=== PATIENT | female | born 1995 | race Caucasian/White ===

== ENCOUNTER 2022-08-29 08:18 | Outpatient (CLI) | payer OTHER, SELFPAY ==
--- NOTE | 2022-08-29 08:15 | CRLHL7_ITS ---
For Patients: As a result of the Century Cures Act, medical imaging exams and procedure reports are released immediately into your electronic medical record. You may view this report before your referring provider. If you have questions, please contact your health care provider. INDICATION: First trimester scan, establish dates. COMPARISON: None. TECHNIQUE: Real-time leone-scale imaging of the pelvis was performed. FINDINGS: Sonographic imaging demonstrates a single living intrauterine gestation. The embryo demonstrates a regular cardiac rate measuring 155 beats per minute. The embryo`s crown-rump length measurement of 1.2 cm corresponds to a gestational age of 7 weeks 2 days with a sonographic due date of April 15, 2023. There is a normal-appearing yolk sac measuring 2.4 mm. There are no gross abnormalities noted within the embryo at this early state of development. The placenta has not yet developed. The gestational sac has a normal appearance and there is no evidence of a perigestational hemorrhage. The amount of fluid within the sac appears appropriate for gestational age. The cervix is closed. The myometrium appears normal. The ovaries are of normal size. The right ovary measures 3.7 x 2.7 x 2.1 cm. Small corpus luteum cyst of on the right. The left ovary measures 2.7 x 1.8 x 1.3 cm. There are no suspicious fluid collections noted in the cul-de-sac. Trace free fluid in the right adnexa should be physiologic. IMPRESSION: Normal first trimester OB ultrasound exam. Gestational age calculated at 7 weeks 2 days with a sonographic due date of April 15, 2023. Dictated by Chase Ann MD @ 08/29/2022 9:25:02 AM (Electronically Signed)
== END 2022-08-29 08:19 | disposition home or self-care (01) ==
LOC: US 08:21
PROVIDERS: PCP Family Medicine; Visit Provider Physician Assistant
DX: Z34.91 Encounter for supervision of normal pregnancy, unspecified, first trimester (principal); Z3A.08 8 weeks gestation of pregnancy
CPT/HCPCS: 76817; 86592; 86703; 86762; 86787; 86803; 86850; 86900; 86901; 87086; 87340; 87491; 87591

== ENCOUNTER 2022-11-26 08:09 | Outpatient (CLI) | payer OTHER, SELFPAY ==
--- NOTE | 2022-11-26 08:15 | CRLHL7_ITS ---
For Patients: As a result of the Century Cures Act, medical imaging exams and procedure reports are released immediately into your electronic medical record. You may view this report before your referring provider. If you have questions, please contact your health care provider. INDICATION: Evaluate anatomy. COMPARISON: None. TECHNIQUE: Real time leone scale imaging of the fetus was performed. FINDINGS: Sonographic imaging demonstrates a single living intrauterine gestation. Fetus demonstrates a regular cardiac rate of 148 beats per minute. Fetus has a vertex orientation and longitudinal lie. The placenta lies anteriorly without evidence of placenta previa. Amniotic fluid volume appears normal. Single deepest vertical pocket: 5.0 cm. The cervix is closed and measures 4.0 cm in length. The composite ultrasound gestational age is calculated at 20 weeks 6 days with an estimated sonographic due date of April 09, 2023. The estimated weight is 370 grams which lies at the 76th percentile. The following biometric measurements were obtained: Biparietal diameter: 4.8 cm/20 weeks 4 days 70% Head circumference: 18.2 cm/20 weeks 4 days 62% Abdominal circumference: 16.4 cm/21 weeks 3 days 83% Femur length: 3.2 cm/19 weeks 6 days 31% The HC/AC ratio measures: 1.1 range (1.06-1.25) On anatomic survey, there is a normal appearance of the cerebral ventricles, cisterna magna and cerebellum. The nose, lips, and facial profile appear normal. The cervical, thoracic and lumbar spine are well visualized and appear normal. There is a normal four-chamber heart view and the left and right ventricular outflow tracts appear normal. diaphragm, stomach, kidneys and bladder appear normal. There is a normal three-vessel cord and cord insertion site. The four extremities appear normal. IMPRESSION: Normal OB ultrasound exam with concordance of clinical and sonographic dating. No intrinsic abnormalities noted on anatomic survey. Dictated by Chase Ann MD @ 11/26/2022 11:21:33 AM (Electronically Signed)
== END 2022-11-26 08:10 | disposition home or self-care (01) ==
LOC: US 08:10
PROVIDERS: PCP Family Medicine; Visit Provider Obstetrics & Gynecology
DX: Z34.92 Encounter for supervision of normal pregnancy, unspecified, second trimester (principal); Z3A.20 20 weeks gestation of pregnancy
CPT/HCPCS: 76805

== ENCOUNTER 2023-01-30 07:34 | Outpatient (CLI) | payer OTHER, SELFPAY | END 2023-01-30 07:35 | disposition home or self-care (01) | PROVIDERS: PCP Family Medicine; Visit Provider Physician Assistant | DX: Z34.93 Encounter for supervision of normal pregnancy, unspecified, third trimester (principal); Z3A.29 29 weeks gestation of pregnancy | CPT/HCPCS: 86592 ==

== ENCOUNTER 2023-03-19 10:34 | Outpatient (CLI) | payer OTHER, SELFPAY ==
--- NOTE | 2023-03-19 11:30 | CRLHL7_ITS ---
For Patients: As a result of the Century Cures Act, medical imaging exams and procedure reports are released immediately into your electronic medical record. You may view this report before your referring provider. If you have questions, please contact your health care provider. INDICATION: Third trimester scan, evaluate growth. Small for dates. COMPARISON: 11/26/2022 TECHNIQUE: Real time leone scale imaging of the fetus was performed. FINDINGS: Sonographic imaging demonstrates a single living intrauterine gestation. Fetus demonstrates a regular cardiac rate of 144 beats per minute. Fetus has a vertex position. The placenta lies anteriorly. Amniotic fluid volume appears normal and there is a single deepest vertical pocket: 6.4 cm. The estimated weight is 3117gm which lies at the 78th %. On the prior OB ultrasound exam dated 11/26/2022 the estimated weight was at the 76th%. BPD 87th percentile. HC 95th percentile. AC 80th percentile. FL 48th percentile. The HC/AC ratio measures 1.05 range (0.91-1.05). IMPRESSION: Sonographic gestational age 37 weeks 4 days and sonographic due date 04/05/2023. Sonographic age 10 days ahead of the clinical age. Estimated weight 78th percentile. Abdominal circumference 80th percentile. Dictated by Lucian Hewitt MD @ 03/19/2023 11:47:28 AM (Electronically Signed)
== END 2023-03-19 10:35 | disposition home or self-care (01) ==
LOC: US 10:35
PROVIDERS: PCP Family Medicine; Visit Provider Obstetrics & Gynecology
DX: O36.5930 Maternal care for other known or suspected poor fetal growth, third trimester, not applicable or unspecified (principal); Z3A.37 37 weeks gestation of pregnancy
CPT/HCPCS: 76816; 87081; 87653

== ENCOUNTER 2023-03-29 11:45 | Outpatient (CLI) | payer OTHER, SELFPAY ==
[2023-03-29 11:57] VITALS: BP 124/75; PULSE 94
[2023-03-29 12:09] VITALS: RESP 16; TEMP 37.1
[2023-03-29 12:27] LABS: Amnisure Rom* Negative
--- NOTE | 2023-03-29 14:29 | PC.OBNST ---
NST Note NST Note Start: 03/29/23 12:56 Freq: ONCE Status: Active Protocol: Document 03/29/23 12:40 [facility] (Rec: 03/29/23 14:29 [facility] [id number]) NST Note 1 Para (# of births) 0 EDC 04/14/23 Gestational Age In Weeks & Days 37 Weeks & 5 Days Patient Presented with Complaint(s) of Leaking fluid Reactive Yes Appropriate for Gestational Age Yes CARROL Montanez RN Date 03/29/23 Reactive Yes Appropriate for Gestational Age Yes CARROL Ritchie Date 03/29/23 OB NST charge Yes Complete NST Note via Write Note Yes The provider's electronic signature indicates the NST is reactive/appropriate for gestational age. *Note to provider: If an addendum is required, open the patient's chart and click on the note under the Nurse/Allied Health tab.
== END 2023-03-29 12:45 | disposition home or self-care (01) ==
LOC: OB OUT 11:45 → OB 11:46
PROVIDERS: PCP Family Medicine; Visit Provider Obstetrics & Gynecology
DX: O47.1 False labor at or after 37 completed weeks of gestation (principal); Z3A.37 37 weeks gestation of pregnancy
CPT/HCPCS: 59025; 84112; 99213

== ENCOUNTER 2023-04-14 15:10 | Inpatient (IN) | payer OTHER, SELFPAY ==
[2023-04-14] VITALS (32 sets, daily range): BP systolic 125–181; BP diastolic 70–109; PULSE 70–86; RESP 18–20; TEMP 36.3–36.5; O2SAT 99; BMI 26.4
[2023-04-14 15:54] LABS: Hematocrit 36.1 % (33.0-51.0); Hemoglobin* 11.9 gm/dL (12.0-16.0); Mean Corpuscular HGB Conc 33 gm/dL (32-36); Mean Corpuscular Hemoglobin 28 pg (26-34); Mean Corpuscular Volume 84 fL (80-100); Platelet Count* 280 K/uL (140-440); Red Blood Count 4.29 m/uL (4.00-5.20); White Blood Count* 9.79 K/uL (4.50-11.00)
[2023-04-14 15:59] LABS: Aspartate Amino Transferase* 33 U/L (12-35); Creatinine* 0.6 mg/dL (0.5-1.5); Est. Creatinine Clearance* 139.38; Estimated Glomerular Filt Rate 128 ml/min; Slide Review Reflex No
[2023-04-14 16:00] LABS: Alanine Aminotransferase* 26 U/L (4-35); Blood Urea Nitrogen* 9 mg/dL (5-24)
[2023-04-14] MEDS: LACTATED RINGERS 1000 ML 1,000 ML 124 ML IV (16:05)
[2023-04-14] MEDS: OXYTOCIN 30 unit/500 ML in NS 30 UNIT/500 ML BAG IVPB (16:05)
[2023-04-14 17:54] LABS: Creatinine Urine 107.2 mg/dL
[2023-04-14 19:47] LABS: Total Protein Urine 1810 mg/dL
--- NOTE | 2023-04-14 20:56 | W.PM.LDBA ---
Subjective History of Present Illness Time Seen by Provider: 12:00 Narrative: Patient is being admitted to Labor and Delivery for early labor. She is a 27 year old at 40.0 weeks gestation. Her full history and physical was dictated by Carin Marrero on 03/26/2023. Please see this for details. She initially presented with contractions and monitored for labor for approximately 6 hours with no change in cervical dilation (2 cm). She was contemplating going home to labor for the latent phase. However, she was noted to have mild ranging BP. I advised her to stay for induction/augmentation as she's not having persistently elevated BP. Patient agreed with IOL given that medical indication is present. Specific Issues/Plans 1. History of depression Has done well on fluoxetine in the past 2. Lifelong hereditary tremor 3. History of SVT. Status post cardiac ablation 2019 4. Nausea and vomiting in the a.m. Vitamin B6 and Unisom, suboptimal relief Phenergan prescription sent 10/02/22 Flu shot: 08/29/22 COVID: VACCINATED AND BOOSTED OB - Problem Based A/P Additional Plan (1) Gestational hypertension: Status: Acute Plan - Wallace: 7. Augmentation of labor with Pitocin - Will draw PreE labs OB Exam Physical Exam Vital signs: Temp Pulse Resp BP Pulse Ox 97.4 F L 75 20 148/98 H 99 04/14/23 19:52 04/14/23 20:39 04/14/23 19:52 04/14/23 20:39 04/14/23 10:30 Narrative: Physical exam: General: No acute distress Psych: Alert and oriented x3, full affect. Uncomfortable during contraction HEENT: Normocephalic, atraumatic Lungs: Labored breathing during contraction Neuro: No focal deficit. Mentating appropriately Pelvic exam: 2, soft, posterior
[2023-04-14] MEDS: fentaNYL 100 MCG/2 ML inj IVP (21:12)
[2023-04-14] MEDS: LABETALOL HCL 5 MG/ML inj IVP ×2 (21:48→22:12)
[2023-04-14] MEDS: MAGNESIUM IV 4 GM/100 ML PIGGYBACK IVPB (22:02)
[2023-04-14 22:17] LABS: Hematocrit 33.8 % (33.0-51.0); Hemoglobin* 11.2 gm/dL (12.0-16.0); Mean Corpuscular HGB Conc 33 gm/dL (32-36); Mean Corpuscular Hemoglobin 28 pg (26-34); Mean Corpuscular Volume 84 fL (80-100); Platelet Count* 273 K/uL (140-440); Red Blood Count 4.03 m/uL (4.00-5.20); White Blood Count* 10.57 K/uL (4.50-11.00)
[2023-04-14 22:22] LABS: Slide Review Reflex No
[2023-04-14 22:32] LABS: Alanine Aminotransferase* 23 U/L (4-35); Aspartate Amino Transferase* 29 U/L (12-35); Blood Urea Nitrogen* 10 mg/dL (5-24); Creatinine* 0.5 mg/dL (0.5-1.5); Est. Creatinine Clearance* 167.26; Estimated Glomerular Filt Rate 133 ml/min
[2023-04-15] VITALS (75 sets, daily range): BP systolic 107–178; BP diastolic 64–106; PULSE 68–156; RESP 14–18; TEMP 36.3–36.9; O2SAT 82–100
[2023-04-15] MEDS: LACTATED RINGERS 1000 ML 1,000 ML 75 ML IV ×3 (01:45→23:20)
[2023-04-15] MEDS: fentaNYL 100 MCG/2 ML inj IVP (04:01)
[2023-04-15 06:43] LABS: Hematocrit 34.1 % (33.0-51.0); Hemoglobin* 11.3 gm/dL (12.0-16.0); Mean Corpuscular HGB Conc 33 gm/dL (32-36); Mean Corpuscular Hemoglobin 28 pg (26-34); Mean Corpuscular Volume 83 fL (80-100); Platelet Count* 289 K/uL (140-440); Red Blood Count 4.09 m/uL (4.00-5.20); White Blood Count* 11.82 K/uL (4.50-11.00)
[2023-04-15 06:45] LABS: Slide Review Reflex No
[2023-04-15 07:10] LABS: Creatinine* 0.5 mg/dL (0.5-1.5); Est. Creatinine Clearance* 167.26; Estimated Glomerular Filt Rate 133 ml/min
[2023-04-15 07:11] LABS: Alanine Aminotransferase* 24 U/L (4-35); Aspartate Amino Transferase* 37 U/L (12-35); Blood Urea Nitrogen* 6 mg/dL (5-24)
[2023-04-15 07:17] LABS: Magnesium* 5.1 mg/dL (1.5-2.6)
[2023-04-15] MEDS: ONDANSETRON 2 MG/ML inj 4 MG IV (08:14)
[2023-04-15] MEDS: ROPIVACAINE 0.2% 100 ml 100 ML 12 MG EPIDURAL ×2 (10:24→17:05)
[2023-04-15] MEDS: ROPIVACAINE 0.2 % PF 10 ML INJ 20 MG EPIDURAL (10:24)
--- NOTE | 2023-04-15 10:50 | P.OBPN_ITS ---
Subjective Date Seen: 04/15/23 Narrative: Margaret is on pitocin and is sami regularly. She is breathing through contractions but coping well. Does plan on getting an epidural but doesn't feel that she needs on at this time. She is on magnesium and her blood pressures are mostly 130-140/80-90's. She hasn't needed treatment since yesterday evening. Dr. Clark and I did discuss this patient. She will continue to manage blood pressures while I manage labor since I am first call today. Will continue with pitcoin titration and consider AROM at noon if appropriate. Objective Vital Signs: Last Vital Signs Temp 97.4 F L 04/15/23 10:32 Pulse 90 04/15/23 10:44 Resp 16 04/15/23 10:32 BP 119/67 04/15/23 10:44 Pulse Ox 92 04/15/23 10:32 Contractions Monitor mode: External Contraction Frequency: 2-5 min Contraction pattern: Irregular Contraction intensity: Strong/Firm Assessment Assessment: induction ongoing Status: Category l Heart Rate Baseline: 120 Longterm Variability: Moderate (6-25) (periods of minimal variability ) Monitor Accelerations: Present Monitor Decelerations: None Plan Plan: Continue with Pitocin titration per protocol. Consider AROM when able. Candidate for epidural analgesia. Able to get when she desires. Blood pressure and magnesium managed by Dr. Clark.
[2023-04-15 11:09] LABS: Hematocrit 35.4 % (33.0-51.0); Hemoglobin* 11.6 gm/dL (12.0-16.0); Mean Corpuscular HGB Conc 33 gm/dL (32-36); Mean Corpuscular Hemoglobin 28 pg (26-34); Mean Corpuscular Volume 84 fL (80-100); Platelet Count* 290 K/uL (140-440); Red Blood Count 4.22 m/uL (4.00-5.20); White Blood Count* 10.56 K/uL (4.50-11.00)
[2023-04-15 11:14] LABS: Slide Review Reflex No
--- NOTE | 2023-04-15 11:25 | PM.ANBPRC ---
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 Exercise 3 times a week 25 minutes Nonsmoker Does not drink alcohol or use drugs What is your current living situation?: I presently have a place to live Problems where you live: no known problems In the past 12 months, utilities in danger of being shut off: no In the past 12 mos, have been you worried that your food would run out before you had money to buy more?: never true In the past 12 mos, the food you bought just didn't last and you didn't have money to buy more?: never true Smoking Status: Never smoker How often does anyone, including family, friends and others, physically hurt you: never How often does anyone, including family, friends and others, insult or talk down to you: never How often does anyone, including family, friends and others, threaten you with harm: never How often does anyone, including family, friends and others, scream or curse at you: never Little interest or pleasure in doing things: several days Feeling down, depressed, or hopeless: several days Meds Home Medications and Allergies Home Medications Medication Instructions Recorded Confirmed Type docosahexaenoic acid 200 mg mg PO DAILY 08/29/22 04/08/23 History capsule ( DHA) pediatric multivitamin no.19-folic tab PO 08/29/22 04/08/23 History acid 200 mcg chewable tablet (Children's Multi-Vitamin Gummies) Allergies Allergy/AdvReac Type Severity Reaction Status Date / Time No Known Drug Allergies Allergy Verified 04/08/23 10:47 Results Labs Labs: Laboratory Results - last 24 hr 04/14/23 04/14/23 04/14/23 15:35 16:35 22:03 WBC 9.79 10.57 RBC 4.29 4.03 Hgb 11.9 L 11.2 L Hct 36.1 33.8 MCV 84 84 MCH 28 28 MCHC 33 33 Plt Count 280 273 BUN 9 10 Creatinine 0.6 0.5 Estimated Creat Clear 139.38 167.26 Estimated GFR 128 133 Magnesium AST 33 29 ALT 26 23 Urine Creatinine 107.2 Protein/Creatinin Ratio 16.80 H Urine Total Protein 1810 04/15/23 04/15/23 06:24 11:02 WBC 11.82 H 10.56 RBC 4.09 4.22 Hgb 11.3 L 11.6 L Hct 34.1 35.4 MCV 83 84 MCH 28 28 MCHC 33 33 Plt Count 289 290 BUN 6 Creatinine 0.5 Estimated Creat Clear 167.26 Estimated GFR 133 Magnesium 5.1 H* AST 37 H ALT 24 Urine Creatinine Protein/Creatinin Ratio Urine Total Protein Vital Signs Vital Signs: Last Vital Signs Temp 97.4 F L 04/15/23 10:32 Pulse 95 04/15/23 11:17 Resp 16 04/15/23 10:32 BP 122/71 04/15/23 11:17 Pulse Ox 92 04/15/23 10:32 Weight: 76.657 kg Height: 170.18 cm Anesthesia Procedures Epidural Insertion Patient Location: OB Start Time: 10:05 Stop Time: 10:50 Start Date: 04/15/23 Stop Date: 04/15/23 Reason for Block: primary anesthetic Patient Position: sitting Performed By: Chris Esqueda Preanesthetic Checklist: IV checked, risks and benefits discussed, surgical consent, monitors and equipment checked, pre-op evaluation, timeout performed and anesthesia consent Prep: chlorhexidine gluconate Monitoring: blood 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
[2023-04-15 11:29] LABS: Alanine Aminotransferase* 26 U/L (4-35); Aspartate Amino Transferase* 36 U/L (12-35); Blood Urea Nitrogen* 6 mg/dL (5-24); Creatinine* 0.6 mg/dL (0.5-1.5); Est. Creatinine Clearance* 139.38; Estimated Glomerular Filt Rate 128 ml/min
[2023-04-15 11:34] LABS: Magnesium* 5.6 mg/dL (1.5-2.6)
--- NOTE | 2023-04-15 13:31 | P.OBPN_ITS ---
Subjective Time Seen by Provider: 11:45 Date Seen: 04/15/23 Narrative: I visited Margaret late this morning, shortly after her epidural. She was feeling more comfortable. At the time of my visit, she had just had cervical exam by RN, findings as below. Objective Exam: Gen - trembling consistent with active labor Cervical exam per RN: / +1 Vital Signs: Last Vital Signs Temp 98.5 F 04/15/23 12:38 Pulse 87 04/15/23 13:18 Resp 16 04/15/23 12:38 BP 126/77 04/15/23 13:18 Pulse Ox 92 04/15/23 10:32 Comments: tracing: Category I, contractions inconsistent and infrequent Pitocin at 8 mU / min Labs from 11:00 a.m.: Hemoglobin 11.6, hematocrit 35.4, platelets 290 Creatinine 0.6 AST 36, down from 37 ALT 26 Magnesium level 5.6 Contractions Monitor mode: External Contraction pattern: Irregular Contraction intensity: Strong/Firm Assessment Status: Category l Heart Rate Baseline: 120 Monitor Accelerations: Present Monitor Decelerations: None Tracing Comments: Category 1 as above Labor Progress: On the verge of active labor given her cervical exam. Currently on Pitocin with intact bag of water. Maternal Status: Preeclampsia with severe features based on blood pressure criteria. Magnesium sulfate for seizure prophylaxis was started overnight. She has been nor motensive in recent history. Labs are all stable. Plan Plan: Continue magnesium for seizure prophylaxis. Continue Pitocin augmentation. I discussed plan with Renetta Valverde and recommended AROM at her next exam. Continuous monitoring. Anticipate .
[2023-04-15 16:19] LABS: Hematocrit 37.2 % (33.0-51.0); Hemoglobin* 12.4 gm/dL (12.0-16.0); Mean Corpuscular HGB Conc 33 gm/dL (32-36); Mean Corpuscular Hemoglobin 28 pg (26-34); Mean Corpuscular Volume 83 fL (80-100); Platelet Count* 309 K/uL (140-440); Red Blood Count 4.46 m/uL (4.00-5.20); White Blood Count* 12.66 K/uL (4.50-11.00)
[2023-04-15 16:22] LABS: Slide Review Reflex No
[2023-04-15 16:36] LABS: Alanine Aminotransferase* 26 U/L (4-35); Aspartate Amino Transferase* 38 U/L (12-35); Blood Urea Nitrogen* 6 mg/dL (5-24); Creatinine* 0.6 mg/dL (0.5-1.5); Est. Creatinine Clearance* 139.38; Estimated Glomerular Filt Rate 128 ml/min
--- NOTE | 2023-04-15 19:33 | PM.OBPNL ---
Subjective Date Seen: 04/15/23 Narrative: Margaret has been continuing to labor and is progressing well. She received an epidural late this morning which is working well for her. She doesn't feel contractions but has continued to feel pressure throughout. Around noon she was offered AROM and was agreeable. She was ruptured with lightly stained meconium fluid. She was 6-7cm at that time. She continued to progress to complete and began pushing a little before 1700. She has continued to push, changing positions frequently. She did take 30-45 minutes of pushing to figure out how to push effectively but now seems to be pushing well. Will continue to change positions to optimize positioning and ability to push. Amniotic fluid is now moderately stained and the pediatric provider is aware. Her blood pressures and temperature have remained in the normal range. Objective Vital Signs: Last Vital Signs Temp 97.7 F 04/15/23 19:19 Pulse 85 04/15/23 19:17 Resp 18 04/15/23 19:19 BP 149/89 H 04/15/23 19:17 Pulse Ox 92 04/15/23 10:32 Contractions Monitor mode: External Contraction pattern: Irregular Contraction intensity: Strong/Firm Assessment Status: Category l Heart Rate Baseline: 120 Monitor Accelerations: Present Monitor Decelerations: None Plan Plan: Continue to push with contractions. Will evaluate progression and change positions as needed. Monitor blood pressures per protocol.
[2023-04-15] MEDS: LABETALOL HCL 5 MG/ML inj IVP (21:15)
--- NOTE | 2023-04-15 21:33 | PM.OBPNL ---
Subjective Time Seen by Provider: 21:15 Date Seen: 04/15/23 Narrative: Margaret has been pushing for just over 4 hours at this point. She is feeling quite tired. No definite progress in the last 30 minutes. Objective Exam: Abdomen: Soft, EFW 7.5 lbs with back to maternal right Vaginal exam: caput to +1, but vertex at 0 station. Suspect OP. Patient intolerant at attempt to perform manual rotation. Vital Signs: Last Vital Signs Temp 97.4 F L 04/15/23 21:00 Pulse 86 04/15/23 21:31 Resp 18 04/15/23 21:00 BP 155/101 H 04/15/23 21:31 Pulse Ox 92 04/15/23 10:32 Margaret has just received a dose of IV labetalol for blood pressure greater than 160 systolic Comments: tracing: Baseline 120, accelerations present, no decelerations, moderate variability Labs at 4:10 p.m.: Hemoglobin 12.4, platelets 309 Creatinine 0.6 AST 38, up from 36 previously ALT 26 Contractions Monitor mode: External Contraction pattern: Irregular Contraction intensity: Strong/Firm Assessment Status: Category l Heart Rate Baseline: 120 Retirement Variability: Moderate (6-25) Monitor Accelerations: Present Monitor Decelerations: None Tracing Comments: Category 1 tracing Labor Progress: Arrest of descent Maternal Status: Severe preeclampsia by blood pressure criteria. Margaret just required a dose of IV labetalol for severely elevated blood pressure. She is maintained on magnesium sulfate. HELLP labs are stable. Plan Plan: Primary delivery. Pitocin was stopped. After 10 minutes, with continuation of painful contractions, she was given a dose of terbutaline. We discussed risks of , including bleeding/hemorrhage, infection, damage to internal organs, uterine scarring and effect on future pregnancies, thromboembolism, and likely recovery. Consent form reviewed with and signed by patient. Cefazolin and azithromycin for preoperative antibiotics. I will plan for misoprostol for anticipated uterine atony.
[2023-04-15] MEDS: TERBUTALINE 1 MG/ML INJ 0.25 MG SUBCUT (21:34)
[2023-04-15 21:48] LABS: Hematocrit 35.4 % (33.0-51.0); Mean Corpuscular HGB Conc 34 gm/dL (32-36); Mean Corpuscular Hemoglobin 28 pg (26-34); Mean Corpuscular Volume 82 fL (80-100); Platelet Count* 293 K/uL (140-440); Red Blood Count 4.34 m/uL (4.00-5.20); White Blood Count* 15.08 K/uL (4.50-11.00)
[2023-04-15 21:52] LABS: Slide Review Reflex No
--- NOTE | 2023-04-15 21:58 | P.OBPN_ITS ---
Subjective Date Seen: 04/15/23 Narrative: Around 2029 the patient had been pushing about 3.5 hours. There had been some good progress in descent but the descent had stalled and there was a significant increase in caput noted. She was starting to loose energy and strength. There was also more space posteriorly as opposed to anteriorly so it was suspected that baby was in an OP presentation. Dr. Clark was called in to come evaluate around 2034. On her arrival it was clear that there had been no change in station and a significant increase in maternal exhaustion. She also had an increase in blood pressures that required treatment. See Dr. Clark's note for additional details. Objective Vital Signs: Last Vital Signs Temp 97.4 F L 04/15/23 21:00 Pulse 86 04/15/23 21:57 Resp 18 04/15/23 21:00 BP 115/81 04/15/23 21:57 Pulse Ox 92 04/15/23 10:32 Contractions Monitor mode: External Contraction pattern: Irregular Contraction intensity: Strong/Firm Pitocin Rate (mU/min): 10 (turned off after decision to proceed with .) Assessment Status: Category l Heart Rate Baseline: 120 Shelter Variability: Moderate (6-25) Monitor Accelerations: Present Monitor Decelerations: None
[2023-04-15 22:05] LABS: Alanine Aminotransferase* 25 U/L (4-35); Aspartate Amino Transferase* 39 U/L (12-35); Blood Urea Nitrogen* 7 mg/dL (5-24); Creatinine* 0.6 mg/dL (0.5-1.5); Est. Creatinine Clearance* 139.38; Estimated Glomerular Filt Rate 128 ml/min
[2023-04-15 22:08] LABS: Magnesium* 6.3 mg/dL (1.5-2.6)
[2023-04-15] MEDS: CEFAZOLIN 2 GM INJ IVP (22:22)
[2023-04-15] MEDS: AZITHROMYCIN 500 MG in 0.9 % SODIUM CHLORIDE 250 ml 250 ML 255 MG IVPB (22:25)
[2023-04-15] MEDS: miSOPROStoL 800 MCG/4 TABLET PR (23:30)
--- NOTE | 2023-04-15 23:56 | P.OBPRC_ITS ---
Procedure Date of procedure: 04/15/23 Pre-op diagnosis: Arrest of descent Post-op diagnosis: same Procedure Done: Global Will [facility] bill your pro fee for this procedure?: Yes Blood Loss Measurement Type: QBL (490) Bakri Used: No IV fluids (mL): 1,400 Surgeon: Dr. Anupama Clark MD Anesthesia type: Epidural Findings: 1. Male infant, cephalic OP presentation, Apgars 1, 4, 7 and 8. Weight 8 lbs 1 oz 2. Bloody urine noted at placement of catheter before . Bladder drained poorly throughout . 3. Normal appearance of uterus, bilateral tubes and ovaries Procedure Description: Patient was taken to the operating room with IV running. She received cefazolin and azithromycin in preoperative prophylaxis. Epidural anesthesia had previously been administered and was dosed to adequacy. Vaginal prep was performed. pillow was placed in the posterior vagina. Sal catheter was inserted. Legs were placed in neutral position. The pillow was inflated with 180 mL. She was prepped and draped in the usual sterile fashion. Anesthesia was tested and found to be adequate. A low-transverse skin incision was made with a scalpel and carried through to the underlying layer of fascia with the scalpel. The subcutaneous fat was dissected off the underlying fascia bluntly. The fascia was nicked in the midline with a scalpel, and this incision was extended laterally with scissors. The rectus muscles were in the midline. Peritoneum was identified and entered bluntly. Scissors were used to widen this opening laterally. Hernan O retractor was inserted and tightened down, providing excellent visualization of the lower uterine segment. The bladder was markedly distended, which did not resolve after flushing the catheter tubing. A bladder flap was created with a combination of sharp and blunt dissection. Low-transverse uterine incision was made with a scalpel. Incision was widened bluntly. The 's head was grasped through the hysterotomy and delivered w ith the help of fundal pressure. The remainder of the body delivered without incident. Cord was clamped and cut shortly after when poor tone was noted. Meconium stained fluid was noted. was handed off to attending nurses. The placenta was delivered with gentle traction on the cord. The uterus was cleaned of all clots and debris with the dry lap pad. The uterus was exteriorized. There was an abundantly bleeding vessel at the left aspect of the incision which was immediately addressed with [id number] sutures. The hysterotomy was reapproximated with 0 Vicryl in a running, locked fashion. Second layer of the same suture was used in imbricating fashion to obtain hemostasis along the leftward aspect. The adnexa were examined and noted to be normal in appearance. The cul-de-sac and gutters were cleansed with dampened laparotomy sponge, removing any further clots and debris. The uterus was returned to the abdomen. The Hernan O retractor was removed. The hysterotomy was reexamined and found to be hemostatic. The peritoneum was reapproximated with 2 0 Vicryl in a running fashion. The rectus muscles were examined and found to be hemostatic. The fascia was reapproximated with 0 Vicryl in a running fashion. Subcutaneous fat was irrigated and Bovie used on oozing vessels. The skin was closed with a subcuticular stitch of 4-0 Monocryl. Surgical glue was applied above this. Patient tolerated procedure well was taken to recovery area in stable condition. Complications: None Condition: stable
[2023-04-16] VITALS (42 sets, daily range): BP systolic 117–182; BP diastolic 72–130; PULSE 71–94; RESP 14–18; TEMP 36.3–36.9; O2SAT 95–100
--- NOTE | 2023-04-16 00:08 | P.ANES_ITS ---
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
--- NOTE | 2023-04-16 00:09 | P.NB_ITS ---
Nerve Block Nerve Block Time Seen by Provider: 23:45 Date Seen: 04/16/23 Type of block requested by surgeon for post-operative analgesia: TAP Side: bilateral Time out performed: Yes Verification of patient name: Yes Verification of date of : Yes Site marking: not applicable Name of person performing procedure: abbi Continuous monitoring Was continuous monitoring of O2 sat, B/P, property assessment monitor, recorded every 15 minutes?: Yes Procedure Checklist: sterile prep, needles and gloves Ultrasound guided. Images saved: Yes Medications given in 5ml increments after negative aspiration: Marcaine %: 0.25 mL: 30 Needle gauge: 20 and Exparel mL: 10 Patient tolerated procedure well: Yes Block Charges Block Charge (with Pro Fee): TAP Bilateral Use of Ultrasound Machine for Block: Yes- US Guidance/pain block
[2023-04-16 00:19] LABS: Base Excess Cord Venous Blood -9.7 mmol/L (-4.4-4.4); Cord Venous Blood HCO3 20 mmol/L (19-24); Cord Venous Blood PCO2 54 mmHG (33-49); Cord Venous Blood pH 7.17 (7.28-7.40)
[2023-04-16] MEDS: diphenhydrAMINE 50 MG/ML inj 12.5 MG IVP ×3 (05:36→10:22)
[2023-04-16] MEDS: KETOROLAC 30 MG/ML inj IVP ×4 (05:37→23:37)
[2023-04-16 05:43] LABS: Hematocrit 34.9 % (33.0-51.0); Hemoglobin* 11.9 gm/dL (12.0-16.0); Mean Corpuscular HGB Conc 34 gm/dL (32-36); Mean Corpuscular Hemoglobin 28 pg (26-34); Mean Corpuscular Volume 81 fL (80-100); Platelet Count* 289 K/uL (140-440); Red Blood Count 4.29 m/uL (4.00-5.20); White Blood Count* 17.32 K/uL (4.50-11.00)
[2023-04-16 05:46] LABS: Slide Review Reflex No
[2023-04-16 06:15] LABS: Aspartate Amino Transferase* 46 U/L (12-35); Creatinine* 0.6 mg/dL (0.5-1.5); Est. Creatinine Clearance* 139.38; Estimated Glomerular Filt Rate 128 ml/min
[2023-04-16 06:16] LABS: Alanine Aminotransferase* 24 U/L (4-35); Blood Urea Nitrogen* 6 mg/dL (5-24)
[2023-04-16 06:24] LABS: Magnesium* 6.1 mg/dL (1.5-2.6)
[2023-04-16] MEDS: LACTATED RINGERS 1000 ML 1,000 ML 125 ML IV (07:02)
[2023-04-16] MEDS: LACTATED RINGERS 1000 ML 1,000 ML 75 ML IV ×2 (07:10→18:16)
[2023-04-16] MEDS: LABETALOL HCL 100 MG TABLET 200 MG PO ×2 (08:45→20:47)
--- NOTE | 2023-04-16 09:11 | PM.OBPNVD1 ---
OB - PN:Subj Subjective Date Seen: 04/16/23 [place] status: transferred Narrative: Patient is okay, tired, a little confused by events last night. Patient is POD1 after delivery due to arrest of descent/dilation. Patient underwent IOL due to preeclampsia with severe features. Surgery uncomplicated, baby had to be transferred to [facility] due to low APGARs and is under cooling therapy. She is on Magnesium Sulfate now to complete 24 hours of seizure prophylaxis after delivery, this will be completed at around 12am on 04/17/23. 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 HELLP labs this morning stable. I/O normal. Blood pressures elevated, not persistently on severity range. She has not eaten, or get out of bed since surgery last night. Pain is currently well managed. OB - PN: Obj Exam Physical Exam: Vital signs: Temp Pulse Resp BP Pulse Ox O2 Del Method 98.2 F 89 16 138/91 H 100 Room Air 04/16/23 08:21 04/16/23 08:21 04/16/23 08:21 04/16/23 08:36 04/16/23 08:21 04/16/23 08:21 Narrative: VITAL SIGNS: As noted above. GENERAL APPEARANCE: Alert, cooperative female in no acute distress. MOOD & AFFECT: Normal. HEART: Regular rate and rhythm without murmurs. LUNGS: Lungs are clear to auscultation bilaterally. No crackles, wheezes, or rhonchi. ABDOMEN: Soft, non-distended and Appropriately tender, well contracted uterus. Incision covered by dressing this is dry. : Normal lochia. EXTREMITIES: Trace edema, SCDs on lower extremities, brisk patellar reflexes. Well perfused. Nontender. NEURO: Intact. Sal catheter: currently at least 100mL of clear urine. Urinary Catheter Management: Urethral: Cath placed during this visit: yes Urethral indwelling: Yes Reason for continuing: surgical procedure Insertion date: 04/15/23 OB - PN: Obj Data Labs Labs: Laboratory Results - last 24 hr 04/15/23 04/15/23 04/15/23 06:24 11:02 16:10 WBC 10.56 12.66 H RBC 4.22 4.46 Hgb 11.6 L 12.4 Hct 35.4 37.2 MCV 84 83 MCH 28 28 MCHC 33 33 Plt Count 290 309 Cord VBG pH Cord VBG pCO2 Cord VBG HCO3 Cord VBG Base Excess BUN 6 6 Creatinine 0.6 0.6 Estimated Creat Clear 139.38 139.38 Estimated GFR 128 128 Magnesium 5.6 H* Cancelled AST 36 H 38 H ALT 26 26 Blood Type O Positive Antibody Screen NEGATIVE 04/15/23 04/15/23 04/16/23 21:43 23:04 05:35 WBC 15.08 H 17.32 H RBC 4.34 4.29 Hgb 12.0 11.9 L Hct 35.4 34.9 MCV 82 81 MCH 28 28 MCHC 34 34 Plt Count 293 289 Cord VBG pH 7.17 L Cord VBG pCO2 54 H Cord VBG HCO3 20 Cord VBG Base Excess -9.7 L BUN 7 6 Creatinine 0.6 0.6 Estimated Creat Clear 139.38 139.38 Estimated GFR 128 128 Magnesium 6.3 H* 6.1 H* AST 39 H 46 H ALT 25 24 Blood Type Antibody Screen OB - PN: A/P Delivery Assessment and Plan (1) Gestational hypertension: Status: Acute Plan 1. Continue Magnesium Sulfate infusion, close monitoring of vital signs, I/Os. Will continue with HELLP labs every 6 hours, will add magnesium level with her next set of labs collected. 2. BP management: Will start labetalol 200mg PO BID. Will continue to titrate as needed. 3. Encouraged to pump as she is interested in , we can also help her with advertising sales consultant. 4. Continue routine pp cares. Plan day: 1 Plan: routine care
[2023-04-16 11:44] LABS: Hematocrit 30.5 % (33.0-51.0); Hemoglobin* 10.3 gm/dL (12.0-16.0); Mean Corpuscular HGB Conc 34 gm/dL (32-36); Mean Corpuscular Hemoglobin 28 pg (26-34); Mean Corpuscular Volume 82 fL (80-100); Platelet Count* 258 K/uL (140-440); Red Blood Count 3.72 m/uL (4.00-5.20); White Blood Count* 14.03 K/uL (4.50-11.00)
[2023-04-16 11:46] LABS: Slide Review Reflex No
[2023-04-16 12:03] LABS: Alanine Aminotransferase* 23 U/L (4-35); Aspartate Amino Transferase* 40 U/L (12-35); Blood Urea Nitrogen* 7 mg/dL (5-24); Creatinine* 0.7 mg/dL (0.5-1.5); Est. Creatinine Clearance* 119.47; Estimated Glomerular Filt Rate 123 ml/min
[2023-04-16 12:11] LABS: Magnesium* 6.2 mg/dL (1.5-2.6)
--- NOTE | 2023-04-16 12:20 | SUR.OPER ---
The pillow was placed at 22:[address] Clark. This commercial real estate underwriter instilled 180mL of sterile saline into the pillow per MD instructions.
--- NOTE | 2023-04-16 12:21 | SUR.OPER ---
This health technical writer deflated the pillow at 23:20 by draining the sterile saline into a graduate. The pillow was then removed from the patient's vagina and disposed of by this health technical writer.
[2023-04-16] MEDS: SIMETHICONE 80 MG TAB.CHEW PO (15:59)
[2023-04-16 18:19] LABS: Hematocrit 32.8 % (33.0-51.0); Hemoglobin* 11.1 gm/dL (12.0-16.0); Mean Corpuscular HGB Conc 34 gm/dL (32-36); Mean Corpuscular Hemoglobin 28 pg (26-34); Mean Corpuscular Volume 83 fL (80-100); Platelet Count* 303 K/uL (140-440); Red Blood Count 3.95 m/uL (4.00-5.20); White Blood Count* 14.92 K/uL (4.50-11.00)
[2023-04-16 18:22] LABS: Alanine Aminotransferase* 25 U/L (4-35); Aspartate Amino Transferase* 43 U/L (12-35); Blood Urea Nitrogen* 9 mg/dL (5-24); Creatinine* 0.7 mg/dL (0.5-1.5); Est. Creatinine Clearance* 119.47; Estimated Glomerular Filt Rate 123 ml/min; Slide Review Reflex No
[2023-04-16] MEDS: OXYCODONE 5 MG TABLET PO (20:46)
[2023-04-16] MEDS: ACETAMINOPHEN 500 MG TABLET 1000 MG PO (20:54)
[2023-04-16 23:56] LABS: Hematocrit 27.8 % (33.0-51.0); Hemoglobin* 9.3 gm/dL (12.0-16.0); Mean Corpuscular HGB Conc 34 gm/dL (32-36); Mean Corpuscular Hemoglobin 28 pg (26-34); Mean Corpuscular Volume 83 fL (80-100); Platelet Count* 234 K/uL (140-440); Red Blood Count 3.34 m/uL (4.00-5.20); White Blood Count* 12.42 K/uL (4.50-11.00)
[2023-04-16 23:59] LABS: Slide Review Reflex No
[2023-04-17] VITALS (9 sets, daily range): BP systolic 116–135; BP diastolic 66–90; PULSE 77–99; RESP 16–18; TEMP 36.4–37.2; O2SAT 94–99
[2023-04-17 00:12] LABS: Alanine Aminotransferase* 20 U/L (4-35); Aspartate Amino Transferase* 36 U/L (12-35); Blood Urea Nitrogen* 12 mg/dL (5-24); Creatinine* 0.7 mg/dL (0.5-1.5); Est. Creatinine Clearance* 119.47; Estimated Glomerular Filt Rate 123 ml/min
[2023-04-17 00:21] LABS: Magnesium* 5.3 mg/dL (1.5-2.6)
[2023-04-17] MEDS: OXYCODONE 5 MG TABLET PO (03:19)
[2023-04-17] MEDS: KETOROLAC 30 MG/ML inj IVP (05:30)
[2023-04-17] MEDS: SODIUM CHLORIDE 0.9 % (FLUSH) 10 ML SYRINGE IVF (05:31)
[2023-04-17 08:48] LABS: Hematocrit 28.9 % (33.0-51.0); Hemoglobin* 9.5 gm/dL (12.0-16.0); Mean Corpuscular HGB Conc 33 gm/dL (32-36); Mean Corpuscular Hemoglobin 28 pg (26-34); Mean Corpuscular Volume 84 fL (80-100); Platelet Count* 241 K/uL (140-440); Red Blood Count 3.44 m/uL (4.00-5.20)
[2023-04-17 08:52] LABS: Slide Review Reflex No
[2023-04-17 09:01] LABS: Alanine Aminotransferase* 22 U/L (4-35); Blood Urea Nitrogen* 11 mg/dL (5-24); Creatinine* 0.6 mg/dL (0.5-1.5); Est. Creatinine Clearance* 139.38; Estimated Glomerular Filt Rate 128 ml/min
--- NOTE | 2023-04-17 09:05 | P.OBPN_ITS ---
OB - PN:Subj Subjective Date Seen: 04/17/23 Patient comments OB post-: no complaints, pain well controlled, tolerating diet and flatus present [place] status: and doing well [place] feeding status: exclusively Narrative: Complications:? primary , baby transferred to NICU.? The patient feels well but exhausted.? The pain is well controlled with current medications.? She has no new complaints.? Urinary output is adequate and she is voiding without difficulty.? Has a good appetite, is tolerating a general diet, is passing flatus, and has not had a bowel movement.? Has scant amount of rubra lochia.? Dressing is clean dry and intact. She is now ambulating well but did not ambulated yesterday so she has not been up much at this point. She is hand expressing milk for her baby in the NICU and will start pumping today as well. We did discuss the possibility of discharge today if her labs today were normal, her blood pressures remain stable, she is able to ambulate without difficulty, pain is well controlled, and she is feeling well enough to discharge.?Blood pressures today have been 110-130/60-80's and denies associated symptoms. She is on 200mg Labetalol BID. Magnesium was stopped around 0000 this morning. Hgb 9.5 today and 9.3 yesterday. Will start on PO iron supplement. OB - PN: Obj Exam Physical Exam: Vital signs: Temp Pulse Resp BP Pulse Ox O2 Del Method 98.0 F 77 18 132/82 96 Room Air 04/17/23 08:00 04/17/23 08:00 04/17/23 08:00 04/17/23 08:00 04/17/23 08:00 04/17/23 08:00 Narrative: GENERAL APPEARANCE:? normal affect, alert, no distress? MOOD:? appropriate? CHEST:? clear to auscultation and percussion? HEART:? regular rate and rhythm? ABDOMEN:? soft, non-tender the uterine fundus is U/2 and is appropriate for the stage of recovery.?Incision dressing is clean dry and intact. EXTREMITIES:? normal and no edema? Urinary Catheter Management: Urethral: Cath placed during this visit: yes, but has since been removed by the nurse Urethral indwelling: Yes Reason for continuing: surgical procedure Insertion date: 04/15/23 Removal date: 04/16/23 Removal time: 22:10 OB - PN: Obj Data Labs Labs: Laboratory Results - last 24 hr 04/16/23 04/16/23 04/16/23 11:37 18:00 23:50 WBC 14.03 H 14.92 H 12.42 H RBC 3.72 L 3.95 L 3.34 L Hgb 10.3 L 11.1 L 9.3 L Hct 30.5 L 32.8 L 27.8 L MCV 82 83 83 MCH 28 28 28 MCHC 34 34 34 Plt Count 258 303 234 BUN 7 9 12 Creatinine 0.7 0.7 0.7 Estimated Creat Clear 119.47 119.47 119.47 Estimated GFR 123 123 123 Magnesium 6.2 H* 6.0 H* 5.3 H* AST 40 H 43 H 36 H ALT 23 25 20 04/17/23 08:38 WBC 10.80 RBC 3.44 L Hgb 9.5 L Hct 28.9 L MCV 84 MCH 28 MCHC 33 Plt Count 241 BUN 11 Creatinine 0.6 Estimated Creat Clear 139.38 Estimated GFR 128 Magnesium AST ALT 22 OB - PN: A/P Delivery Assessment and Plan (1) Gestational hypertension: Status: Acute (2) Lactating mother: Status: Acute (3) care following delivery: Status: Acute (4) Pre-eclampsia: Status: Acute (5) 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 [facility] records - Hereditary essential tremor. Status: Chronic (6) Iron deficiency anemia: Status: Acute Plan day: 2 Plan: routine care
[2023-04-17] MEDS: LABETALOL HCL 100 MG TABLET 200 MG PO ×2 (09:20→21:26)
[2023-04-17] MEDS: DOCUSATE SODIUM 100 MG CAPSULE PO (09:21)
[2023-04-17 09:30] LABS: Aspartate Amino Transferase* 39 U/L (12-35)
[2023-04-17] MEDS: ACETAMINOPHEN 500 MG TABLET 1000 MG PO (18:58)
[2023-04-17] MEDS: FERROUS SULFATE 325 MG TABLET PO (18:59)
[2023-04-18 04:02] VITALS: BP 149/98; PULSE 80; RESP 16; TEMP 36.6; O2SAT 98
--- NOTE | 2023-04-18 08:50 | P.OBPN_ITS ---
Documented by User: Lyle Mann CNM 04/18/23 09:36 OB - PN:Subj Subjective Date Seen: 04/18/23 Patient comments OB post-: pain well controlled status: and NICU [place] feeding status: expressed and storing Narrative: Margaret is a 27 y.o. who had a .?The patient feels well. ?The pain is well controlled with current medications. ?She has no new complaints. ?She is pumping as her baby has been transferred to NICU and reports things are going well.? the patient was on Magnesium sulfate for pre-eclampsia. ? She has been afebrile, she has had elevated BP this morning at 0400 149/98 and then arount 0830 147/87. Will adjust medication currently on 200mg Labetalol BID increase to 400mg BID per Dr. Whitaker. Will consider discharge later today if blood pressures regulate with medication change. She would like to go to see her baby.? She has remained afebrile.? Has a good appetite, is tolerating a general diet. ?She is voiding without difficulty.? She is passing gas and has had a bowel movement.? She is ambulating and denies any dizziness.? Has Small amount of rubra lochia. OB - PN: Obj Exam Physical Exam: Vital signs: Temp Pulse Resp BP Pulse Ox O2 Del Method 97.9 F 80 16 149/98 H 98 Room Air 04/18/23 04:02 04/18/23 04:02 04/18/23 04:02 04/18/23 04:02 04/18/23 04:02 04/18/23 04:02 Narrative: GENERAL APPEARANCE:? normal affect, alert, no distress? MOOD:? appropriate? CHEST:? clear to auscultation and percussion? HEART:? regular rate and rhythm? ABDOMEN:? soft, non-tender the uterine fundus is firm and u/2 and is appropriate for the stage of recovery.? INCISION: is clean, dry and intact with out drainage. ? EXTREMITIES:? normal and no edema? Urinary Catheter Management: Urethral: Cath placed during this visit: yes, but has since been removed by the nurse Urethral indwelling: Yes Reason for continuing: surgical procedure Insertion date: 04/15/23 Removal date: 04/16/23 Removal time: 22:10 OB - PN: Obj Data Labs Labs: Laboratory Results - last 24 hr 04/17/23 04/17/23 08:38 08:50 WBC 10.80 RBC 3.44 L Hgb 9.5 L Hct 28.9 L MCV 84 MCH 28 MCHC 33 Plt Count 241 BUN 11 Creatinine 0.6 Estimated Creat Clear 139.38 Estimated GFR 128 AST 39 H ALT 22 OB - PN: A/P Delivery Assessment and Plan (1) care following delivery: Status: Acute (2) Gestational hypertension: Status: Acute (3) Lactating mother: Status: Acute (4) Pre-eclampsia: Status: Acute (5) 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 [facility] records - Hereditary essential tremor. Status: Chronic (6) Iron deficiency anemia: Status: Acute Plan day: 3 Plan: routine care Comments: Assessment/Plan?G 1 P 1 status post uncomplicated primary .? ?? 1.? Continue route PP cares? 2.? . Pumping while in NICU.? May see if desired? 3.? Anticipate discharge home later today or tomorrow. Dependent on blood pressure readings. 4.? Acute anemia.? Iron supplement ordered? Documented by User: Lia Mc CNM 04/18/23 09:58 OB - PN:Subj Subjective Narrative: Margaret is a 27 y.o. who had a .?The patient feels well. ?The pain is well controlled with current medications. ?She has no new complaints. ?She is pumping as her baby has been transferred to NICU and reports things are going well.? the patient was on Magnesium sulfate x24 hours for pre- eclampsia, it was stopped last night.? She has been afebrile. This morning she has had an elevated BP at 0400 149/98. On rounding this morning at 0830 it was 147/87. Will adjust medication currently on 200mg Labetalol BID increase to 400mg BID, Dr. Whitaker agrees with plan. Will consider discharge later today if blood pressures regulate with medication change. She would like to go to see her baby.? She has remained afebrile.? Has a good appetite, is tolerating a general diet. ?She is voiding without difficulty.? She is passing gas and has had a bowel movement.? She is ambulating and denies any dizziness.? Has small amount of rubra lochia. 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 [facility] records - Hereditary essential tremor. Status: Chronic (6) Iron deficiency anemia: Status: Acute Plan Comments: Assessment/Plan?G 1 P 1 status post uncomplicated primary .? ?? 1.? Continue route PP cares? 2.? . Pumping while in NICU.? May see if desired? 3.? Acute anemia.? Iron supplement ordered? 4. Pre-eclampsia. Medication adjusted to Labetalol BID 400mg. Continue to monitor BP. 5. Consider discharge home later today or tomorrow dependant on blood pressure readings.
[2023-04-18 09:10] VITALS: BP 154/109; RESP 16; TEMP 36.7; O2SAT 96
[2023-04-18] MEDS: DOCUSATE SODIUM 100 MG CAPSULE PO (09:15)
[2023-04-18] MEDS: LABETALOL HCL 100 MG TABLET 400 MG PO (09:15)
[2023-04-18 09:25] VITALS: BP 130/89
[2023-04-18 12:05] VITALS: BP 127/84; PULSE 84; RESP 16; TEMP 36.8; O2SAT 95
[2023-04-18 15:50] VITALS: BP 128/82; PULSE 94; RESP 16; TEMP 37.1; O2SAT 96
--- NOTE | 2023-04-18 16:50 | PM.OBDSVD1 ---
Documented by User: Lyle Mann CNM 04/18/23 17:05 DS: Providers Provider Date Seen: 04/18/23 Date of admission: 04/14/23 15:10 Primary care physician: Preethi Albert MD Admitting Clinician: Tamia Velasco MD Attending Physician on discharge: Lyle Mann CNM with Liaelinor Mc CNM Date of Discharge: 04/18/23 DS: Diagnosis Discharge Diagnosis (1) care following delivery: Status: Acute (2) Pre-eclampsia: Status: Acute (3) Lactating mother: Status: Acute (4) Gestational hypertension: Status: Ruled-out (5) Iron deficiency anemia: Status: Acute Exam Narrative: Exam Narrative: VSS. ?AfebrileGENERAL APPEARANCE: ?normal affect, alert, no distress MOOD: ?appropriate HEENT: normocephalic, neck supple, full ROM CHEST: ?Symmetrical chest wall movement. ?Normal respiratory effort. ?Clear to auscultation HEART: ?regular rate and rhythm ABDOMEN: ?soft, non-tender. Uterine fundus is firm, 2 below Umbilicus, Midline and is appropriate for the stage of recovery. ? EXTREMITIES: ?normal and 2+ edema in LE's SKIN: warm, dry. ? ?Incision clean/dry/well approximated. ?No signs of infection noted. Const: Vital Signs, click to edit/add: Vital Signs - 24 hr 04/17/23 17:38 04/17/23 20:46 04/17/23 21:27 Temperature 97.8 F Pulse Rate [Left P ulse Oximeter] 98 86 Respiratory Rate 16 18 Blood Pressure [Ri ght Arm] 135/86 135/90 H 134/80 Pulse Oximetry 99 97 Oxygen Delivery Me thod Room Air Room Air 04/17/23 23:51 04/18/23 04:02 04/18/23 09:10 Temperature 98.4 F 97.9 F 98.1 F Pulse Rate [Left P ulse Oximeter] 93 80 Respiratory Rate 18 16 16 Blood Pressure [Ri ght Arm] 120/75 149/98 H 154/109 H Pulse Oximetry 97 98 96 Oxygen Delivery Me thod Room Air Room Air Room Air 04/18/23 09:25 04/18/23 12:05 04/18/23 15:50 Temperature 98.3 F 98.7 F Pulse Rate [Left P ulse Oximeter] 84 94 Respiratory Rate 16 16 Blood Pressure [Ri ght Arm] 130/89 127/84 128/82 Pulse Oximetry 95 96 Oxygen Delivery Me thod Room Air Room Air Documenting provider has reviewed patient's vital signs: yes OB - DS: Summary Hospital Course Hospital Course: The patient is a 27 year old G 1 P 1 at 40.0 weeks gestation that was admitted to the Center on 04/14/23 for early labor, induced for GHTN mild range diagnosed in triage . She had an uncomplicated cesearean section delivery for failure to descend. She delivered a viable male . She is pumping for her in NICU, she plans on breast feeding. the patient was diagnosed with Preeclampsia and placed on Magnesium for seizure prevention. She was started on 200mgLabetolol BID, increased this morning to 400mg BID now stable BP's running 120-130/70-80's. Peripartum Data delivery method: Primary C/S; Labored Procedures: Procedures Operation Date: 04/15/23 22:15 Actual Procedure Side Surgeon p Section Anupama Clark MD [place] Gender: Male Infant Discharge Plan: in NICU at other hospital Status at Discharge Functional status at discharge: independent ambulation Overall status at discharge: patient is progressing back to baseline Time Spent with Patient Time attestation: Total time spent providing and/or coordinating discharge services: Time spent: Less than 30 minutes Discharge Plan Discharge Disposition: Home, Self-Care Date of Admission: 04/14/23 15:10 Attending Provider on Discharge: Lia Mc Primary Care Provider: Preethi Albert Condition: Stable Anticipated Discharge Date/Time: 04/18/23 17:00 Discharge Medications: New acetaminophen 500 mg Tablet 1,000 mg PO Q6H PRN (Reason: Pain) Qty: 0 0RF docusate sodium 100 mg Capsule 100 mg PO DAILY Qty: 90 0RF ferrous sulfate 325 mg (65 mg iron) Tablet 325 mg PO DAILYWM Qty: 90 0RF ibuprofen 600 mg Tablet 600 mg PO Q6H PRN (Reason: Pain) Qty: 60 0RF labetalol 200 mg tablet 400 mg PO BID Qty: 60 1RF oxycodone 5 mg Tablet 5 - 10 mg PO Q4H PRN (Reason: Pain) Qty: 20 0RF Continued Children's Multi-Vit Gummies 200 mcg tablet,chewable 1 tab PO DAILY Hold Instructions: taking DHA 200 mg capsule 200 mg PO DAILY ondansetron 4 mg tablet,disintegrating 4 mg PO Q6H PRN (Reason: nausea and vomiting) Qty: 30 1RF ferrous sulfate 27 mg iron tablet 27 mg PO QMWF Qty: 60 1RF Discharge Orders: Discharge Order (Routine); Ordered 04/18/23 Ordered By: Lyle Mann Patient Education: OB Over the Counter Medication Information, OB /Breast Feeding Additional Instructions: Discharge instructions were reviewed with the patient including signs and symptoms of infection and home going medications Lifting Restrictions: 20 pounds for 6 weeks No not submerge incision under water X 2 weeks? Nothing vaginally for 6 weeks: no tampons or intercourse Do not drive while taking narcotic pain medication(s) Off Work or School for 8 weeks [facility] for a BP check?04/21/2023 Call with BP greater than or equal to 160/110 2-week visit: incision check, discuss infant feeding concerns, review control options and screen for anxiety/depression. 6-week visit for an annual exam. consultation services are available to all mothers and babies for the first year after delivery.? To make an appointment, please call [phone]. Activity Level: Activity as Tolerated Discharge Diet: Regular Follow Up Appointments: [facility] [Provider Group] Forms: AJ Team Products Info Instructions Documented by User: Lia Mc CNM 04/18/23 17:13 DS: Diagnosis Discharge Diagnosis (1) care following delivery: Status: Acute (2) Pre-eclampsia: Status: Acute (3) Lactating mother: Status: Acute (4) Gestational hypertension: Status: Ruled-out (5) Iron deficiency anemia: Status: Acute OB - DS: Summary Hospital Course Hospital Course: The patient is a 27 year old G 1 P 1 at 40.0 weeks gestation that was admitted to the Center on 04/14/23 for early labor, induced for GHTN mild range diagnosed in triage . She had an uncomplicated cesearean section delivery for failure to descend. She delivered a viable male infant. She is pumping for her infant in NICU, she plans on breast feeding. In labor the patient was diagnosed with Preeclampsia and placed on Magnesium for seizure prevention. She was started on 200mg Labetolol BID, increased this morning to 400mg BID now stable BP's running 120-130/70-80's. Peripartum Data complications: none Discharge Plan Discharge Disposition: Home, Self-Care Date of Admission: 04/14/23 15:10 Attending Provider on Discharge: Lia Mc Primary Care Provider: Preethi Albert Condition: Stable Anticipated Discharge Date/Time: 04/18/23 17:00 Discharge Medications: New acetaminophen 500 mg Tablet 1,000 mg PO Q6H PRN (Reason: Pain) Qty: 0 0RF docusate sodium 100 mg Capsule 100 mg PO DAILY Qty: 90 0RF ferrous sulfate 325 mg (65 mg iron) Tablet 325 mg PO DAILYWM Qty: 90 0RF ibuprofen 600 mg Tablet 600 mg PO Q6H PRN (Reason: Pain) Qty: 60 0RF labetalol 200 mg tablet 400 mg PO BID Qty: 60 1RF oxycodone 5 mg Tablet 5 - 10 mg PO Q4H PRN (Reason: Pain) Qty: 20 0RF Continued Children's Multi-Vit Gummies 200 mcg tablet,chewable 1 tab PO DAILY Hold Instructions: taking DHA 200 mg capsule 200 mg PO DAILY ondansetron 4 mg tablet,disintegrating 4 mg PO Q6H PRN (Reason: nausea and vomiting) Qty: 30 1RF ferrous sulfate 27 mg iron tablet 27 mg PO QMWF Qty: 60 1RF Discharge Orders: Discharge Order (Routine); Ordered 04/18/23 Ordered By: Lyle Mann Patient Education: OB Over the Counter Medication Information, OB /Breast Feeding Additional Instructions: Discharge instructions were reviewed with the patient including signs and symptoms of infection and home going medications Lifting Restrictions: 20 pounds for 6 weeks No not submerge incision under water X 2 weeks? Nothing vaginally for 6 weeks: no tampons or intercourse Do not drive while taking narcotic pain medication(s) Off Work or School for 8 weeks [facility] for a BP check?04/21/2023 Call with BP greater than or equal to 160/110 2-week visit: incision check, discuss infant feeding concerns, review control options and screen for anxiety/depression. 6-week visit for an annual exam. consultation services are available to all mothers and babies for the first year after delivery.? To make an appointment, please call [phone]. Activity Level: Activity as Tolerated Discharge Diet: Regular Follow Up Appointments: [facility] [Provider Group] Forms: AJ Team Productsth Info Instructions
== END 2023-04-18 19:47 | disposition home or self-care (01) | DRG 788 ==
LOC: OB OUT 15:11 → OB 15:11
PROVIDERS: Advanced Practice Midwife; Obstetrics & Gynecology; Admitting Provider Obstetrics & Gynecology; PCP Family Medicine; Visit Provider Obstetrics & Gynecology
PROC: 10D00Z1 Extraction of Products of Conception, Low, Open Approach (ICD-10-PCS; CPT 59514; principal; 2023-04-15 22:00)
DX: O13.4 Gestational [pregnancy-induced] hypertension without significant proteinuria, complicating childbirth (principal); O14.14 Severe pre-eclampsia complicating childbirth; O32.4XX0 Maternal care for high head at term, not applicable or unspecified; G25.0 Essential tremor; O99.02 Anemia complicating childbirth; D50.9 Iron deficiency anemia, unspecified; Z37.0 Single live birth; Z3A.40 40 weeks gestation of pregnancy; G89.18 Other acute postprocedural pain
CPT/HCPCS: 01967; 01968; 36415; 51701; 64488; 76942; 82565; 82570; 82803; 83735; 84156; 84450; 84460; 84520; 85018; 85025; 85027; 85384; 85610; 85730; 86850; 86900; 86901; 99140; A9270; C9290; J0456; J0665; J0690; J1100; J1200; J1885; J2274; J2371; J2405; J2590; J2795; J3010; J3105; J3475; J7050; J7120

== ENCOUNTER 2023-04-18 20:31 | Outpatient (CLI) | payer OTHER, SELFPAY ==
[2023-04-18] MEDS: OXYCODONE 5 MG TABLET PO (20:39)
[2023-04-18] MEDS: LABETALOL HCL 100 MG TABLET 400 MG PO (20:39)
--- NOTE | 2023-04-18 20:46 | PC.NURSE ---
Patient discharged from around 1940 for home. Nursing staff was told that was going to picking supervisor medications prior to picking her up. Shortly after they got home, called the center to ask what they should do cause the pharmacy was closed. ED called to see if Labetalol were in instymeds. GOOD Sanchez was on the unit and asked if we were able to get her the evening dose of medication. A PRN order for Oxycodone was also obtained. Patient and returned to the for Labetalol, and requested pain medications. Educated the need to go to pharmacy right away in the morning to get medications.
== END 2023-04-18 20:55 | disposition home or self-care (01) ==
LOC: OB CLI 20:32 → OB 20:33
PROVIDERS: PCP Family Medicine; Visit Provider Advanced Practice Midwife
DX: Z39.2 Encounter for routine postpartum follow-up (principal)
CPT/HCPCS: 99211; A9270

== ENCOUNTER 2023-05-05 14:30 | Outpatient (CLI) | payer OTHER, SELFPAY ==
--- NOTE | 2023-05-05 17:00 | P.LACCB_ITS ---
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 Mcconnell Jaundice: No Reason for Consult Reason for Consult: pain with latching Past Experience Past Experience: No Current Frequency of Day Feedings: every 2 - 2.5 hours Frequency of Night Feedings: every 2 hours Both Breasts: Yes Suck: strong Latch: shallow Length of Time: a nursing session can go up to 45 minutes Pumping Pumping: No Supplementing EMB Supplement: No Formula Supplement: Yes (baby gets about three 3 - 4 oz bottle daily) Baby Elimination Number of Wet Diapers a Day: 6 - 8 Number of BM a Day: 4 - 6, yellow and seedy Breast/Nipple Condition Breast Information: WNL Maternal Nipple Condition - Left: Common Nipple Maternal Nipple Condition - Right: Common Nipple Sore Nipples: Yes Onsite Pre-Feed weight: 3.934 kg Post-Feed weight: 3.994 kg Milk Transferred (mL): 60 Assessments/Interventions Assessments/Interventions: Met with mom and this now 3 week old ex- term AGA baby for consult. Baby was transferred to [facility] shortly after for respiratory distress and possible infection. He was in the NICU for 5 days where mom reports he was bottle fed formula. He's been home for about 2 weeks. Mom reports is a little less painful now than at the time she made the appointment, but it's still not comfortable. She reports baby is nursing every 2 - 2.5 hours during the day and about every 2 hours overnight. She offers both sides and reports a nursing session can be up to 45 minutes long. She isn't pumping and isn't interested in starting, states it just seemed like it would be too much. Baby is given 2 - 4 oz of formula TID- dad likes to give a bottle(s) and mom will sometimes offer one to give herself a break. Breasts WNL- symmetrical with rounded lower quadrants, intramammary distance < 1.5 inches. Nipples are everted and don't flatten or retract on compression, no damage noted. Baby has gained 42 grams/day since his last visit with PCP on 04/28 and he's 10 oz above his BW at 3 weeks old. Mom denies any caput/cephalohematoma at delivery, reports equal ROM when turning his head and moving his extremities. His palate is a little elevated, his upper frenulum is tight as it's hard to flange his upper lips and his gums tre. He has a strong suck on a finger and his tongue extends past the gum line. There is some canoeing of the tongue when lateralizing. The lower frenulum wasn't visualized, posterior? Mom latched baby to the right side in the cross cradle hold and the latch was shallow. When she was verbally coached to point her nipple to his nose, bring him quickly to her when he opened wide, and support her breast she was able to bring him on more deeply. Baby's latch was much wider and she immediately reported more comfort. Baby nursed about 10 minutes, needing some stimulation to stay awake, then came off the breast. Mom re-latched him and he nursed about another 5 minutes. She was shown how to take him off her breast to protect her nipple and latched him to the left side. Baby nursed about 10 minutes, coming off this side a little more often and needed to be re-latched but mom did a good job of getting him on so she was comfortable. When baby was weighed he had transferred 60 ml. Reviewed with mom that a baby his age usually wants/needs 3 - 4 oz at each feeding. Mom declined to put him back on the breast. Plan: 1. Encouraged mom to continue nursing ALD, offer both sides at each feeding and use the ideas above to get a more comfortable latch. Keep him awake and active at the breast and we reviewed that the average length of a nursing session is 10 - 20 min/side. 2. Watch for cues after nursing and if he still seems hungry, ok to put him back on the breast or offer supplement. He probably only needs 1 - 2 oz after a nursing session, 3 - 4 if mom doesn't nurse first. Did review that the more often he's formula fed the harder it will be to keep her supply. 3. Will f/u with PCP for a 2 month WCC and in prn. Encouraged Baby Talk. Meds Home Medications and Allergies Home Medications Medication Instructions Recorded Confirmed Type docosahexaenoic acid 200 mg 200 mg PO DAILY 08/29/22 05/27/23 History capsule ( DHA) pediatric multivitamin no.19-folic 1 tab PO DAILY 08/29/22 05/27/23 History acid 200 mcg chewable tablet (Children's Multi-Vitamin Gummies) Allergies Allergy/AdvReac Type Severity Reaction Status Date / Time No Known Drug Allergies Allergy Verified 05/27/23 09:25
== END 2023-05-05 14:31 | disposition home or self-care (01) ==
LOC: OB LAC 14:31
PROVIDERS: PCP Family Medicine; Visit Provider Obstetrics & Gynecology
DX: Z39.1 Encounter for care and examination of lactating mother (principal)
CPT/HCPCS: 99211

== ENCOUNTER 2024-12-14 09:03 | Outpatient (CLI) | payer OTHER, SELFPAY ==
--- NOTE | 2024-12-14 09:15 | CRLHL7_ITS ---
For Patients: As a result of the Cures Act, medical imaging exams and procedure reports are released immediately into your electronic medical record. You may view this report before your referring provider. If you have questions, please contact your health care provider. OB ULTRASOUND INDICATION: Dating, viability. TECHNIQUE: Real time grayscale imaging of the fetus was performed. Transvaginal. LMP: 10/16/2024. ROHAN by LMP: 07/23/2025. GA: 8 w, 3 d. Previous US: No. CRL: 1.8 cm. 8 w 2 d. ROHAN: 07/24/2025. FHR: 171 BPM. Gestational sac: 3.3 cm. Appears within normal limits. Yolk sac: 3.0 mm. Appears within normal limits. Right ovary: 3.0 x 1.6 x 1.8 cm. Left ovary: 3.3 x 2.3 x 1.9 cm. IMPRESSION: Single living intrauterine measuring 8 weeks 2 days and sonographic due date 07/24/2025. Lucian Hewitt M.D. Diagnostic Radiologist [email or web address] ROSEANNE/nayana kraus/Dictated by: Lucian Hewitt MD @ 12/14/2024 10:02:00 AM (Electronically Signed)
== END 2024-12-14 09:04 | disposition home or self-care (01) ==
LOC: US 09:04
PROVIDERS: PCP Family Medicine; Visit Provider Physician Assistant
DX: Z34.91 Encounter for supervision of normal pregnancy, unspecified, first trimester (principal); Z3A.08 8 weeks gestation of pregnancy
CPT/HCPCS: 76817; 82565; 82570; 83021; 84156; 84450; 84460; 84520; 86592; 86703; 86704; 86706; 86762; 86787; 86803; 86850; 86900; 86901; 87086; 87340; 87491; 87591

== ENCOUNTER 2025-02-14 11:50 | Outpatient (CLI) | payer OTHER, SELFPAY | END 2025-02-14 11:51 | disposition home or self-care (01) | LOC: NFLDREF 02-16 13:58 | PROVIDERS: PCP Family Medicine; Referring Provider Family Medicine; Visit Provider Obstetrics & Gynecology | DX: Z34.82 Encounter for supervision of other normal pregnancy, second trimester (principal) | CPT/HCPCS: 82570; 84156 ==

== ENCOUNTER 2025-03-08 10:05 | Outpatient (CLI) | payer OTHER, SELFPAY ==
--- NOTE | 2025-03-08 10:15 | CRLHL7_ITS ---
For Patients: As a result of the 21st Century Cures Act, medical imaging exams and procedure reports are released immediately into your electronic medical record. You may view this report before your referring provider. If you have questions, please contact your health care provider. OB ULTRASOUND SURVEY LMP: 10/16/2024. ROHAN by LMP: 07/23/2025. GA: 20 w, 3 d. INDICATION: Supervision of normal . TECHNIQUE: Real time grayscale imaging of the fetus was performed. Evaluate anatomy. Transabdominal and transvaginal imaging performed. Transvaginal imaging obtained to better evaluate the cervix. position: Multiple positions. Cervix: Visualized. Technique: Transabdominal and transvaginal. Length of closed cervix: 5.3 cm. Placenta/cord: Anterior. Technique: Transabdominal and transvaginal. Placenta tip to internal OS: 0.2 cm. Umbilical Cord: 3-vessel cord. Placenta insertion: Central. Amniotic Fluid: 4.6 cm SDP (greater than/equal to: 2- less than 8 cm). SURVEY: Observed Structures. Calvarium/Spine: Cerebellum: 2.1 cm, 21 w 3 d. Cisterna Magna: 4.0 mm. Nuchal Fold: 4.3 mm. Lateral Ventricle: 6.1 mm. CSP: Yes. Midline Falx: Yes. Choroid Plexus: Yes. Spine: Yes. Abdomen: Stomach: Yes. Abd Cord Insertion: Yes. Urinary Bladder: Yes. Kidneys: Yes. Diaphragm: Yes. Face: Nose/lips: Yes. Orbital view: Yes. Profile: Yes. Limbs: Upper Extremities: Yes. Lower Extremities: Yes. Hands: Yes. Feet: Yes. Vascular: 4-Chamber Heart: Yes. LVOT: Yes. RVOT: Yes. 3VV: Yes. 3VTV: Yes. BPD: 4.8 cm. 20 w, 3 d, 47 percent. HC: 18.2 cm. 20 w, 4 d, 51 percent. AC: 16.8 cm. 21 w, 5 d, 84 percent. FL: 3.3 cm. 20 w, 2 d, 36 percent. FL/AC ratio: 19.62 percent. HC/AC ratio: 1.09. heart rate: 139 bpm. age by this US: 20 w, 6 d. ROHAN by this US: 07/20/2025. EFW: 393.91 g. Weight: 14 oz. Percentile by ROHAN: 78 percent. IMPRESSION: 1. Normal anatomic survey. 2. Concordance of clinical and sonographic dating. 3. Low-lying anterior placenta located 0.2 cm from the internal cervical os. Follow-up in the 3rd trimester recommended. Lucian Hewitt M.D. Diagnostic Radiologist [email or web address] ROSEANNE/nayana jj/Dictated by: Lucian Hewitt MD @ 03/08/2025 5:32:00 PM (Electronically Signed)
== END 2025-03-08 10:06 | disposition home or self-care (01) ==
LOC: US 10:05
PROVIDERS: PCP Family Medicine; Visit Provider Obstetrics & Gynecology
DX: Z34.92 Encounter for supervision of normal pregnancy, unspecified, second trimester (principal); O44.42 Low lying placenta NOS or without hemorrhage, second trimester; Z3A.20 20 weeks gestation of pregnancy
CPT/HCPCS: 76805; 76817

== ENCOUNTER 2025-05-02 09:08 | Outpatient (CLI) | payer OTHER, SELFPAY ==
--- NOTE | 2025-05-02 09:15 | CRLHL7_ITS ---
For Patients: As a result of the Century Cures Act, medical imaging exams and procedure reports are released immediately into your electronic medical record. You may view this report before your referring provider. If you have questions, please contact your health care provider. OB ULTRASOUND FOLLOW-UP/LIMITED, 05/02/2025 CLINICAL HISTORY: Low-lying placenta. COMPARISON: 03/08/2025. TECHNIQUE: Real time leone scale imaging of the fetus was performed. Transabdominal and transvaginal imaging performed. Transvaginal ultrasound of the pelvis was performed to better evaluate the genitourinary organs such as the ovaries and/or endometrium. FINDINGS: LMP: 10/16/2024. ROHAN by LMP: 07/23/2025. GA: 28 weeks 2 days. Gestation: Single. Surgery: One . Cervix: Visualized. Transvaginal measurement: 3.8 cm. Positioning: Vertex. Amniotic Fluid: 4.5 cm SDP. Placenta: Technique: Transabdominal and transvaginal. Placenta Position: Anterior. Dopplers: Heart Rate: 137 bpm. IMPRESSION: Transabdominal and transvaginal imaging of the cervix and placental position performed. The cervix is closed and measures 3.7 cm. The edge of the anterior placenta is located 2.2 cm from the internal cervical os. Lucian Hewitt M.D. Diagnostic Radiologist [email or web address] Transcribed: 10:35 am DW/Dictated by: Lucian Hewitt MD @ 05/02/2025 10:20:00 AM (Electronically Signed)
== END 2025-05-02 09:09 | disposition home or self-care (01) ==
LOC: US 09:08
PROVIDERS: PCP Family Medicine; Visit Provider Obstetrics & Gynecology
DX: O44.43 Low lying placenta NOS or without hemorrhage, third trimester (principal); Z3A.28 28 weeks gestation of pregnancy
CPT/HCPCS: 76816; 76817; 86592

== ENCOUNTER 2025-06-22 09:54 | Outpatient (CLI) | payer OTHER, SELFPAY ==
[2025-06-23 19:26] LABS: Strep B DNA Probe Negative (Negative)
[2025-06-23 21:58] LABS: Strep B Susceptibility Needed? No
== END 2025-06-22 09:55 | disposition home or self-care (01) ==
LOC: NFLDREF 09:54
PROVIDERS: PCP Family Medicine; Visit Provider Obstetrics & Gynecology
DX: Z34.93 Encounter for supervision of normal pregnancy, unspecified, third trimester (principal)
CPT/HCPCS: 87081; 87653

== ENCOUNTER 2025-07-05 15:32 | Outpatient (CLI) | payer OTHER, SELFPAY ==
--- NOTE | 2025-07-05 15:45 | CRLHL7_ITS ---
For Patients: As a result of the Century Cures Act, medical imaging exams and procedure reports are released immediately into your electronic medical record. You may view this report before your referring provider. If you have questions, please contact your health care provider. OB ULTRASOUND FOLLOW-UP GROWTH, TRANSABDOMINAL Clinical History: LMP: 10/16/2024. ROHAN by LMP: 07/23/2026. GA: 37 w, 3 d. Single. Comparison: 05/02/2025, 03/08/2025, 12/14/2024. INDICATION: Uterine size/date discrepancy. TECHNIQUE: Real time leone scale imaging of the fetus was performed. Transabdominal imaging performed. CERVIX: Not visualized. POSITIONING: Vertex. AMNIOTIC FLUID: 5.4 cm SDP (N: greater than 2 x 1 cm) PLACENTA: Technique: Transabdominal. PLACENTA POSITION: Anterior. DOPPLER: heart rate: 130 bpm. BIOMETRY: BPD: 9.4 cm. 38 w, 1 d, 83.5 percent. HC: 34.1 cm. 39 w, 1 d, 69.2 percent. AC: 34.6 cm. 38 w, 3 d, 88.5 percent. FL: 7.1 cm. 36 w, 2 d, 23.3 percent. FL/AC ratio: 20.5 percent. HC/AC ratio: 1.0. EFW: 3378 g. Weight: 7 lbs, 7 oz. age by this US: 38 w, 0 d. ROHAN by this US: 07/19/2025. Percentile by ROHAN: 74.4 percent. IMPRESSION: 1. Sonographic gestational age 38 weeks 0 days and sonographic due date 09/19/2024. Good correlation with dates. 2. Estimated weight 74th percentile. Abdominal circumference 89th percentile. Lucian Hewitt M.D. Diagnostic Radiologist [email or web address] SP/Dictated by: Lucian Hewitt MD @ 07/05/2025 4:25:00 PM (Electronically Signed)
== END 2025-07-05 15:33 | disposition home or self-care (01) ==
LOC: US 15:32
PROVIDERS: PCP Family Medicine; Visit Provider Obstetrics & Gynecology
DX: O26.843 Uterine size-date discrepancy, third trimester (principal); Z3A.37 37 weeks gestation of pregnancy
CPT/HCPCS: 76816

== ENCOUNTER 2025-07-05 23:33 | Inpatient (IN) | payer OTHER, SELFPAY ==
[2025-07-05] VITALS (62 sets, daily range): BP systolic 121–141; BP diastolic 74–91; PULSE 66–96; O2SAT 89–100; BMI 27.2
[2025-07-05 17:38] LABS: Hematocrit* 34.0 % (33.0-51.0); Hemoglobin* 10.9 gm/dL (12.0-16.0); Mean Corpuscular HGB Conc 32 gm/dL (32-36); Mean Corpuscular Hemoglobin 27 pg (26-34); Mean Corpuscular Volume 85 fL (80-100); Red Blood Count* 4.02 m/uL (4.00-5.20); White Blood Count* 9.20 K/uL (4.50-11.00)
[2025-07-05 17:57] LABS: Slide Review Reflex No
[2025-07-05 17:59] LABS: Protein Creatinine Ratio Urine 0.32 (0-0.19)
[2025-07-05 18:05] LABS: Alanine Aminotransferase* 13 U/L (4-35); Aspartate Amino Transferase* 25 U/L (12-35); Blood Urea Nitrogen* 12 mg/dL (5-24); Creatinine* 0.5 mg/dL (0.5-1.5); Estimated Glomerular Filt Rate 132 ml/min
--- NOTE | 2025-07-05 21:03 | PM.OBHPLI ---
OB - H&P: HPI Labor/Induction History of Present Illness Date Seen: 07/05/25 Chief Complaint: Margaret is a 29 yo at 37 3/7 weeks gestation here for IOL for newly diagnosed Pre-eclampsia without severe features based on elevated BP >4 hours apart and elevated p/c ratio. Chief complaint: maternity : 2 Para: 1 Narrative: Margaret Naik is a 29 year old at 37 3/7 weeks gestation that presented today to clinic for routine with notable elevated blood pressures of 148/88 now being admitted for IOL for pre-eclampsia without severe features. She was sent to labor and delivery for extended blood pressure monitoring. She met criteria for pre-eclampsia without severe features after 4 hours of elevated blood pressures with a p/c ratio of 0.32. She denies any headache, visual changes, epigastric pain, or n/v. She is a patient of the OB team. She is supported in labor by her partner, Kulwant. Specific Issues/Plans Partner: Kulwant Baby boy: undecided H&P: [] # history of gestational hypertension and preeclampsia Aspirin 81 mg Baseline pre E labs: normal, protein:creatinine 0.05 24 hour urine for protein: 198mg # history of , arrest of descent/cephalic OP presentation Desires . Consent given for review score: 64.4% consent signing: signed and returned 03/08/25, sent to scan # depression, doing well on fluoxetine 20 mg #Anterior Low lying placenta at 20 weeks, RESOLVED Pelvic rest recommended, lifted at 28 week visit Follow up transvaginal ultrasound at 28-32 weeks ? Resolved, no further work up; 2.2 cm from internal os Imagin03/08/2025 FAS: Normal anatomic survey. EFW 78%. Low-lying anterior placenta located 0.2 cm from the internal cervical os. Follow-up in the 3rd trimester recommended. 05/02/2025 IMPRESSION: Transabdominal and transvaginal imaging of the cervix and placental position performed. The cervix is closed and measures 3.7 cm. The edge of the anterior placenta is located 2.2 cm from the internal cervical os. 07/05/2025 Impression: vertex, SDP 5.4, FHR 130, EFW 74%ile Vaccinations: COVID: declines Flu: declines Tdap:06/08/25 RSV: 06/08/25 32 week mental health: 06/08/25 Last pap: 08/29/22 GBS negative History of Present Dating criteria: based on LMP care: good care Ultrasounds: normal 1st trimester US and normal mid trimester US Labs Narrative: Blood type: O+, antibody screen negative.??? Hgb: 10.9??? Platelets: ???266 Rubella: Immune??? Varicella: Immune? RPR: non-reactive??? HBsAg: non-reactive??? Hep C: negative? HIV: negative??? UC: negative? GC/Chlamydia: negative/negative??? 1hr gtt: 129??? GBS (06/22/2025): negative?? Review of Systems Status of ROS: Reports: 6 or more systems reviewed and unremarkable except as noted in History and below Meds Home Medications and Allergies Home Medications ?Medication ?Instructions ?Recorded ?Confirmed ?Type fluoxetine 20 mg tablet 20 mg PO QDAY #90 tabs 08/12/24 07/05/25 Rx [id number]-omega 3 fatty no.1 27 1 cap PO DAILY 12/14/24 07/05/25 History mg-1 mg-300 mg capsule aspirin 81 mg tablet 81 mg PO QDAY 02/08/25 07/05/25 History Allergies Allergy/AdvReac Type Severity Reaction Status Date / Time No Known Drug Allergies Allergy Verified 07/05/25 09:36 OB - H&P: Exam Physical Exam: Vital signs: Pulse BP Pulse Ox 89 134/91 H 90 07/05/25 21:01 07/05/25 21:01 07/05/25 20:43 Narrative: Vitals Reviewed Constitutional:? Alert and oriented x3 HEENT:? Normocephalic, atraumatic Neck:? Supple Lungs:? Clear to auscultation bilaterally Heart:? Regular rate and rhythm, no murmur, rub or gallop Abdomen:? Soft, nontender, and gravid. Vertex by Denis's, confirmed with bedside US due to difficult SVE. Extremities:? No edema or erythema Cervix: 1 cm/ difficult due to patient intolerance of SVE NST: 125 bpm/moderate variability/15x15 accelerations/no decelerations/contractions every 5 minutes palpating mild OB - Results Labs Labs: Short CBC 12/02/25 Range/Units 17:28 WBC 9.20 (4.50-11.00) K/uL Hgb 10.9 L (12.0-16.0) gm/dL Hct 34.0 (33.0-51.0) % Plt Count 266 (140-440) K/uL BMP 07/05/25 17:28 BUN 12 Creatinine 0.5 Liver Function 07/05/25 Range/Units 17:28 AST 25 (12-35) U/L ALT 13 (4-35) U/L OB - Problem Based A/P Additional Plan (1) History of section complicating : Problem details: Considering Status: Acute (2) Desires (vaginal after ) trial: Status: Acute (3) Encounter for induction of labor: Status: Acute (4) Preeclampsia: Status: Acute (5) 37 weeks gestation of : Status: Acute Plan ASSESSMENT:? 29 yo at 37 3/7 weeks gestation? complicated by:?newly diagnosed Pre-eclampsia without severe features, hx of GHTN and PP HTN, Hx of c/s due to arrest, depression, low lying placenta now resolved. Labor type: Induction, not in labor? Category 1 FHR pattern.?? Labor complicated by: TOLAC and pre-eclampsia? GBS negative? ? PLAN:? 1. Routine intrapartum cares as ordered. Reviewed IOL recommendation with cook and/or IV pitocin. She is limited on options due to TOLAC. She is open to a cook but does not tolerate exam well. May be best to attempt cook placement with IV fentanyl or nitrous. Will review plan of care with MD when she returns to the unit. Patient IOL currently on hold until unit is safe to proceed. 2. Monitoring per policy, continuous per protocol with HTN. 3. Candidate for analgesia of choice, if desired. Patient is thinking she will want to try IV fentanyl first but will likely want an epidural.?? 4. Patient encouraged to reposition and ambulate to promote physiologic labor and .? 5. Pre-eclampsia without SF, monitor BP per protocol. 6. Anticipate ? Delivery/Labor/Induction Plan Plan: induction
[2025-07-05] MEDS: OXYTOCIN 30 unit/500 ML in NS 30 UNIT/500 ML BAG IVPB (23:36)
[2025-07-05] MEDS: LACTATED RINGERS 1000 ML 1,000 ML 125 ML IV (23:36)
[2025-07-06] VITALS (136 sets, daily range): BP systolic 111–144; BP diastolic 63–91; PULSE 65–104; RESP 16–22; TEMP 36.4–36.9; O2SAT 89–100
[2025-07-06] MEDS: LACTATED RINGERS 1000 ML 1,000 ML 125 ML IV ×3 (07:36→14:22)
--- NOTE | 2025-07-06 07:51 | P.OBPN_ITS ---
Subjective Time Seen by Provider: 07:51 Date Seen: 07/06/25 Narrative: Margaret is a 29yo at 37w4d GA ongoing IOL as a TOLAC for preE without SF. is complicated by history of C/S (arrest of descent), history of HTN disorder of , resolved low lying placenta, depression. IOL has included pitocin, at 8mu/min at present. Patient rates contractions at 4/10 in severity, no bleeding or leaking of fluids. Endorses active movement. Discussed options for continued IOL, including AROM where risks/benefits and alternatives were reviewed. Verbal consent obtained. Objective Exam: General: Alert and oriented, no acute distress Psych: Appropriate mood and affect Abdomen: Gravid. Cervix: 3.5/50/-1, vertex well applied. AROM performed with return of moderate volume clear fluid. FHR: Category 1. Baseline 130bpm, moderate variability, accelerations present, no decelerations [place]: Contractions q3-5m Vital Signs: Last Vital Signs Temp 98.0 F 07/06/25 06:32 Pulse 91 07/06/25 07:32 Resp 16 07/06/25 06:32 BP 133/87 07/06/25 07:32 Pulse Ox 100 07/06/25 07:29 Plan Plan: Margaret is a 29yo at 37w4d GA ongoing IOL as a TOLAC for preE without SF. is complicated by history of C/S (arrest of descent), history of HTN disorder of , resolved low lying placenta, depression. - IOL has included pitocin overnight. Cervix is 3.5/50/-1 on my exam, s/p AROM this morning for clear fluid. - BPs have been normal to mild range overnight. Asymptomatic. PreE labs normal on admission. - TOLAC consent previously signed in clinic, plan to notify team when patient is in active labor - BT O+ - GBS negative
[2025-07-06] MEDS: LIDOCAINE 2% (PF) 5 ML VIAL EPIDURAL (13:23)
[2025-07-06] MEDS: ROPIVACAINE 0.2% 100 ml 100 ML 12 MG EPIDURAL (13:25)
--- NOTE | 2025-07-06 13:32 | PM.ANBPRC ---
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, unspecified (ICD-10) ?R25.1 - Tremor, unspecified (ICD-10) Depression (2005) ?F32.A - Depression, unspecified (ICD-10) Surgical History S/P section ?Z98.891 - History of uterine scar from previous surgery (ICD-10) History of appendectomy (2007) ?Z90.49 - Acquired absence of other specified parts of digestive tract (ICD-10) History of radiofrequency ablation procedure for cardiac arrhythmia (2019) ?Z98.890 - Other specified postprocedural states (ICD-10) Family History Mother Diabetes 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 Marital status: . Zoroastrianism/cultural needs: no. Chemical or radiation exposure: no. Pre- tobacco use: no. Pre- alcohol use: no. Current tobacco use: no. Current alcohol use: no. Recreational drug use: no. Dietary restrictions: no. Blood transfusion acceptable in an emergency: yes. PSYCHOSOCIAL HISTORY: History of depression or currently depressed: yes. Current or past physical, emotional, or sexual mistreatment: Denies. Problems that will make it hard to make it to appointments: Denies. What is your current living situation?: I presently have a place to live Problems where you live: no known problems In the past 12 months, utilities in danger of being shut off: no In past 12 months, lack of transportation kept you from medical appts, meetings, work, or getting things needed for daily living: no In the past 12 mos, have been you worried that your food would run out before you had money to buy more?: never true In the past 12 mos, the food you bought just didn't last and you didn't have money to buy more?: never true Smoking Status: Never smoker How often does anyone, including family, friends and others, physically hurt you: never How often does anyone, including family, friends and others, insult or talk down to you: never How often does anyone, including family, friends and others, threaten you with harm: never How often does anyone, including family, friends and others, scream or curse at you: never Meds Home Medications and Allergies Home Medications ?Medication ?Instructions ?Recorded ?Confirmed ?Type fluoxetine 20 mg tablet 20 mg PO QDAY #90 tabs 08/12/24 07/05/25 Rx VYF-cvoi-MS-omega 3 fatty no.1 27 1 cap PO DAILY 12/14/24 07/05/25 History mg-1 mg-300 mg capsule aspirin 81 mg tablet 81 mg PO QDAY 02/08/25 07/05/25 History Allergies Allergy/AdvReac Type Severity Reaction Status Date / Time No Known Drug Allergies Allergy Verified 07/05/25 09:36 Results Labs Labs: Laboratory Results - last 24 hr 07/05/25 07/05/25 07/05/25 17:18 17:28 23:05 WBC 9.20 RBC 4.02 Hgb 10.9 L Hct 34.0 MCV 85 MCH 27 MCHC 32 Plt Count 266 BUN 12 Creatinine 0.5 Estimated GFR 132 AST 25 ALT 13 Urine Creatinine 41.0 Protein/Creatinin Ratio 0.32 H Urine Total Protein 13 Blood Type O Positive Antibody Screen NEGATIVE Vital Signs Vital Signs: Last Vital Signs Temp 97.7 F 07/06/25 11:59 Pulse 86 07/06/25 13:30 Resp 18 07/06/25 11:59 BP 129/74 07/06/25 13:30 Pulse Ox 98 07/06/25 13:27 Weight: 78.925 kg Height: 170.18 cm Anesthesia Procedures Epidural Insertion Patient Location: OB Start Time: :05 Stop Time: 13:28 Start Date: 07/06/25 Stop Date: 07/06/25 Reason for Block: procedure for pain Patient Position: sitting Performed By: Adrian Rudolph Preanesthetic Checklist: IV checked, risks and benefits discussed, surgical consent, monitors and equipment checked, pre-op evaluation, timeout performed and anesthesia consent Prep: chlorhexidine gluconate Monitoring: blood pressure monitoring, continuous pulse oximetry and heart rate Approach: midline Vertebral Space: lumbar (1-5) Epidural Technique: OSCAR air Needle Type: Tuohy needle Injection Technique: continuous catheter Needle gauge: 17 Needle Length (cm): 10 cm Needle Insertion Depth (cm): 7 Catheter Gauge: 19 Catheter Type: multi-orifice Catheter at skin depth (cm): 13 Test Dose Result: negative and lidocaine 1.5% with epinephrine 1 to 200,000
[2025-07-06] MEDS: LIDOCAINE 1 % PF 30 ML INJECTION (16:04)
[2025-07-06] MEDS: miSOPROStoL 800 MCG/4 TABLET PR (16:17)
--- NOTE | 2025-07-06 23:59 | W.PM.VAGDEL1 ---
Procedure Delivery date: 07/06/25 Procedure Done: Global Procedure Details: Normal spontaneous vaginal delivery Second degree laceration repair Events: Previous , Pre-Eclampsia and Labor Induction Intrapartal Events: Labor Induction Delivery augmentation: rupture of membranes Delivery monitor: external FHT Route of delivery: Laceration description: Perineal - 2nd Degree Delivery repair: Vicryl Estimated blood loss (mL): 250 Anesthesia type: Epidural (Local for perineal repair) Disposition: floor Complications: None Narrative: Margaret is a 29yo at 37w4d GA admitted for IOL as a TOLAC for preE without SF. is complicated by history of C/S (arrest of descent), history of HTN disorder of , resolved low lying placenta, depression. heart tones on admission were category 1. Her labor was induced with cook catheter and Pitocin and epidural was utilized for pain management. Status of bag of carreno: AROM intrapartum, clear fluid. heart tones during active labor were category 1 and 2 (rare variable decelerations). She was complete at 1432 and started pushing at 1445. She made excellent descent throughout the second stage of labor, and had a normal spontaneous vaginal delivery at 1550. heart tones during second stage of labor were category 2 for recurrent variable decelerations, with rapid return to normal baseline. Tracing was interrupted as baby was . Baby delivered OA, restituted BLADE and the anterior and posterior shoulders delivered without difficulty. Nuchal cord: absent. The cord was clamped and cut after delayed cord clamping. Active management of the third stage occurred with IV pitocin and gentle cord traction and the placenta delivered spontaneous and intact at 1601. Cord gases sent: no Cord blood sent for infant ABO: no details: - Liveborn male fetus at 1550 - weight: 7lb 1 oz - APGARs were 7 and 8 at 1 and 5 minutes respectively Perineum and vagina were inspected, and the following lacerations were noted: second degree perineal laceration. Repair was completed in the usual fashion with local anesthesia and existing epidural analgesia. Excellent hemostasis was noted. The following counts were correct: sponges, needles, instruments. Mother and in stable condition following the . Infant Gender: Male presentation: vertex Placental Delivery Description: Spontaneous Cord Description: 3 Vessels total score - 1 minute: 7 total score - 5 minute: 8
[2025-07-07 03:05] VITALS: BP 120/76; PULSE 78; RESP 18; O2SAT 97
[2025-07-07 09:00] VITALS: BP 116/73; PULSE 79; RESP 16; TEMP 36.4; O2SAT 98
[2025-07-07] MEDS: DOCUSATE SODIUM 100 MG CAPSULE PO (09:04)
[2025-07-07] MEDS: IBUPROFEN 600 MG TABLET PO (09:08)
[2025-07-07 11:50] VITALS: BP 123/78; PULSE 70; RESP 16; TEMP 36.4; O2SAT 98
--- NOTE | 2025-07-07 11:54 | PM.OBDSVD1 ---
DS: Providers Provider Date Seen: 07/07/25 Date of admission: 07/05/25 23:33 Primary care physician: Preethi Albert MD Admitting Clinician: Bela Medley MD Attending Physician on discharge: Kaitlin FUNK Date of Discharge: 07/07/25 DS: Diagnosis Discharge Diagnosis (1) care and examination of lactating mother: Status: Acute (2) , delivered: Status: Acute (3) Preeclampsia: Status: Acute (4) Depression: Status: Acute Exam Narrative: Exam Narrative: GENERAL APPEARANCE:? normal affect, alert, no distress MOOD:? appropriate CHEST:? clear to auscultation HEART:? regular rate and rhythm ABDOMEN:? soft, non-tender the uterine fundus is At Umbilicus, Midline and is appropriate for the stage of recovery. PERINEUM:? mild edema of the perineum, there is a Perineal Laceration,? well approximated with no abnormal erythema or discharge EXTREMITIES:? normal and minimal edema Const: Vital Signs, click to edit/add: Vital Signs - 24 hr 07/06/25 11:58 07/06/25 11:59 07/06/25 13:07 Temperature 97.7 F Pulse Rate 70 72 Pulse Rate [Blood Pressure Cuff] Pulse Rate [Pulse Oximeter] Respiratory Rate 18 Blood Pressure 111/68 134/76 Blood Pressure [Ri ght Arm] Pulse Oximetry 100 Oxygen Delivery Me thod 07/06/25 13:12 07/06/25 13:17 07/06/25 13:18 Temperature Pulse Rate 68 Pulse Rate [Blood Pressure Cuff] Pulse Rate [Pulse Oximeter] Respiratory Rate Blood Pressure 130/82 Blood Pressure [Ri ght Arm] Pulse Oximetry 100 100 Oxygen Delivery Me thod 07/06/25 13:20 07/06/25 13:22 07/06/25 13:24 Temperature Pulse Rate 72 74 76 Pulse Rate [Blood Pressure Cuff] Pulse Rate [Pulse Oximeter] Respiratory Rate Blood Pressure 131/80 126/74 132/78 Blood Pressure [Ri ght Arm] Pulse Oximetry 100 Oxygen Delivery Me thod 07/06/25 13:26 07/06/25 13:27 07/06/25 13:28 Temperature Pulse Rate 82 87 Pulse Rate [Blood Pressure Cuff] Pulse Rate [Pulse Oximeter] Respiratory Rate Blood Pressure 129/78 126/73 Blood Pressure [Ri ght Arm] Pulse Oximetry 98 Oxygen Delivery Me thod 07/06/25 13:30 07/06/25 13:32 07/06/25 13:34 Temperature Pulse Rate 86 88 90 Pulse Rate [Blood Pressure Cuff] Pulse Rate [Pulse Oximeter] Respiratory Rate Blood Pressure 129/74 128/74 128/74 Blood Pressure [Ri ght Arm] Pulse Oximetry Oxygen Delivery Az thod 07/06/25 13:36 07/06/25 13:42 07/06/25 13:47 Temperature Pulse Rate 86 84 81 Pulse Rate [Blood Pressure Cuff] Pulse Rate [Pulse Oximeter] Respiratory Rate Blood Pressure 127/74 124/74 131/76 Blood Pressure [Ri ght Arm] Pulse Oximetry Oxygen Delivery Az thod 07/06/25 13:52 07/06/25 13:57 07/06/25 14:02 Temperature Pulse Rate 79 86 80 Pulse Rate [Blood Pressure Cuff] Pulse Rate [Pulse Oximeter] Respiratory Rate Blood Pressure 129/81 134/79 122/75 Blood Pressure [Ri ght Arm] Pulse [facility]xim[facility] 07/[facility] 14:07 07/06/25 14:12 07/06/25 14:32 Temperature Pulse Rate 82 92 85 Pulse Rate [Blood Pressure Cuff] Pulse Rate [Pulse Oximeter] Respiratory Rate Blood Pressure 120/71 119/70 124/63 Blood Pressure [Ri ght Arm] Pulse Oximetry [facility] 07/06/25 15:00 07/06/25 15:03 07/06/25 15:17 Temperature 98.5 F Pulse Rate 79 82 Pulse Rate [Blood Pressure Cuff] Pulse Rate [Pulse Oximeter] Respiratory Rate 20 Blood Pressure 124/66 128/72 Blood Pressure [Ri ght Arm] Pulse Oximetry Oxygen Delivery Az thod 07/06/25 15:32 07/06/25 15:47 07/06/25 16:02 Temperature Pulse Rate 82 94 88 Pulse Rate [Blood Pressure Cuff] Pulse Rate [Pulse Oximeter] Respiratory Rate Blood Pressure 135/79 144/91 H 142/65 H Blood Pressure [Ri ght Arm] Pulse Oximetry Oxygen Delivery Az thod 07/06/25 16:20 07/06/25 16:32 07/06/25 16:47 Temperature Pulse Rate 88 83 88 Pulse Rate [Blood Pressure Cuff] Pulse Rate [Pulse Oximeter] Respiratory Rate Blood Pressure 138/79 134/69 133/77 Blood Pressure [Ri ght Arm] Pulse Oximetry Oxygen Delivery Me thod 07/06/25 17:02 07/06/25 17:17 07/06/25 17:32 Temperature Pulse Rate 88 101 H 95 Pulse Rate [Blood Pressure Cuff] Pulse Rate [Pulse Oximeter] Respiratory Rate Blood Pressure 141/68 H 137/63 123/64 Blood Pressure [Ri ght Arm] Pulse Oximetry Oxygen Delivery Me thod 07/06/25 17:47 07/06/25 18:02 07/06/25 20:09 Temperature Pulse Rate 100 92 Pulse Rate [Blood Pressure Cuff] 92 Pulse Rate [Pulse Oximeter] Respiratory Rate 22 Blood Pressure 124/66 121/67 Blood Pressure [Ri ght Arm] 123/79 Pulse Oximetry 96 Oxygen Delivery Me thod Room Air 07/06/25 23:53 07/07/25 03:05 07/07/25 09:00 Temperature 98 F 97.5 F L Pulse Rate Pulse Rate [Blood Pressure Cuff] 85 78 Pulse Rate [Pulse Oximeter] 79 Respiratory Rate 16 18 16 Blood Pressure Blood Pressure [Ri ght Arm] 120/75 120/76 116/73 Pulse Oximetry 97 97 98 Oxygen Delivery Me thod Room Air Room Air Room Air OB - DS: Summary Hospital Course Hospital Course: Margaret is a 29?y.o. G 2 P 1999 who was admitted to [facility] for IOL for TOLAC and Pre-e without severe features.?She had a NVD that was uncomplicated. The patient feels well but does have a new onset of mild MELARA. She has not yet taken any tylenol. RN asked to check another BP. The pain is otherwise well controlled with current medications.??She has no new complaints.??She is breast?feeding?and reports things are going well. the patient has done well.??Vitals have been stable since 07/06 at 1717.??She has?remained?afebrile.??Has a good appetite,?is?tolerating a general diet.??She is voiding without difficulty.??She is not passing gas but has had a bowel movement.??She is ambulating and denies any dizziness.??Has?small?amount of rubra lochia. She is planning condoms and NFP for prevention.? ?? Problems: none? ?? plan:? Discharge?home with baby.? Follow up in 2 weeks and?6 weeks.? , may see if needed? Hgb 10.9. ? Pre-Ediagnosed by elevated BP greater than 4 hours apart? Labs WNL or stable with trending? Discharge?home with BP cuff if does not already have one? Follow up in 3-5 days? Call for signs/symptoms of preeclampsia? Peripartum Data delivery method: Laceration description: Perineal - 2nd Degree Episiotomy description: None complications: none [place] Infant Gender: Male Infant Discharge Plan: Home Status at Discharge Functional status at discharge: independent ambulation Overall status at discharge: patient is progressing back to baseline Time Spent with Patient Time attestation: Total time spent providing and/or coordinating discharge services: Time spent: Less than 30 minutes Discharge Plan Discharge Disposition: Home, Self-Care Date of Admission: 07/05/25 23:33 Attending Provider on Discharge: Nadia Dave Primary Care Provider: Preethi Albert Condition: Stable Anticipated Discharge Date/Time: 07/07/25 18:24 Discharge Medications: New docusate sodium 100 mg Capsule 100 mg PO DAILY Qty: 60 0RF Continued fluoxetine 20 mg tablet 20 mg PO QDAY Qty: 90 3RF [id number] 3 fatty no.1 27-1-300 mg capsule 1 cap PO DAILY Discontinued aspirin 81 mg tablet 81 mg PO QDAY Discharge Orders: Discharge Order (Routine); Ordered 07/07/25 Ordered By: Nadia Dave Patient Education: OB Over the Counter Medication Information, OB Vaginal/Breast Feeding Additional Instructions: Discharge instructions were reviewed with the patient including signs and symptoms of infection and home going medications Nothing vaginally for 6 weeks: no tampons or intercourse Do not drive while taking narcotic pain medication(s) Off Work or School for 8 weeks Symptoms to report to doctor: Bleeding that saturates more than one pad per hour Passing clots larger than the size of a golf ball Pain not relieved by prescribed medication Fever above 100.4 degrees Fahrenheit A foul vaginal odor Difficulty in emotions, mood, and functions Thoughts of hurting yourself and/or Painful, reddened area in your breast Any drainage, redness, or tenderness in your IV/epidural site Severe headache that doesn't improve after taking medications Changes in vision, including temporary loss of vision, blurred vision, and/or light sensitivity Upper abdominal pain (usually under ribs on the right side) Decrease in urination or painful, frequent urinating Chest pain Shortness of breath Tenderness or pain with redness and/swelling in the calf(s) of your leg [facility] for a BP check?07/11/2025, please call to schedule this. Call with BP greater than or equal to 140/90 2-week visit: discuss infant feeding concerns, review control options and screen for anxiety/depression. 6-week visit for an annual exam. consultation services are available to all mothers and babies for the first year after delivery.? To make an appointment, please call [phone]. Activity Level: Activity as Tolerated and No strenuous activity Discharge Diet: Regular Follow Up Appointments: [facility] [Provider Group] Forms: [employer] Info Instructions
[2025-07-07] MEDS: ACETAMINOPHEN 500 MG TABLET 1000 MG PO (13:08)
[2025-07-07 13:10] VITALS: BP 123/81; PULSE 86; O2SAT 100
--- NOTE | 2025-07-07 14:46 | PM.ANPOST ---
Post Anesthesia Note Post Anesthesia Note Patient seen: Inpatient Respiratory Status: adequate Cardiovascular Status: adequate Mental Status: baseline Pain: adequate Temp: baseline Anesthetic awareness: N/A Complications: none Follow care: none
[2025-07-07 17:05] VITALS: BP 117/70; PULSE 85; RESP 16; TEMP 36.4; O2SAT 98
== END 2025-07-07 20:11 | disposition home or self-care (01) | DRG 807 ==
LOC: OB OUT 07-06 07:20 → OB 07-06 07:20
PROVIDERS: Obstetrics & Gynecology; Admitting Provider Obstetrics & Gynecology; PCP Family Medicine; Visit Provider Obstetrics & Gynecology
DX: O14.04 Mild to moderate pre-eclampsia, complicating childbirth (principal); O34.219 Maternal care for unspecified type scar from previous cesarean delivery; O70.1 Second degree perineal laceration during delivery; O99.344 Other mental disorders complicating childbirth; F32.A Depression, unspecified; Z37.0 Single live birth; Z3A.37 37 weeks gestation of pregnancy
CPT/HCPCS: 01967; 36415; 76815; 82565; 82570; 84156; 84450; 84460; 84520; 85025; 85027; 86592; 86850; 86900; 86901; 94761; G0463; A9270; J2003; J2270; J2795; J7120

== ENCOUNTER 2025-07-11 13:40 | Outpatient (CLI) | payer OTHER, SELFPAY ==
--- NOTE | 2025-07-11 15:16 | W.PM.LAC.MC ---
Consult Note - Mom Date of Visit Date of visit: 07/11/25 Reason for consultation: Assistance Needed and Breast/Nipple Issue Visit Code: Visit Patient's Information Phone number: [phone] : 2 Para: 2 Allergies No Known Drug Allergies Allergy (Verified 07/05/25 09:36) Mother's Medical History: Medical History (Updated 07/07/25 @ 11:56 by Nadia Dave CNM) History of gestational hypertension ?Z87.59 - Personal history of other complications of , childbirth and the puerperium (ICD-10) ?Z86.79 - Personal history of other diseases of the circulatory system (ICD-10) Pre-eclampsia ?O14.90 - Unspecified pre-eclampsia, unspecified trimester (ICD-10) Iron deficiency anemia ?D50.9 - Iron deficiency anemia, unspecified (ICD-10) 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 [employer] ADVISOR ?G96.9 - Disorder of central nervous system, unspecified (ICD-10) ?R25.1 - Tremor, unspecified (ICD-10) Depression (2005) ?F32.A - Depression, unspecified (ICD-10) Delivery Information Delivery type: Gestational Age: 37+4 Gestational Weight For Age: AGA Weight: 3.21 kg Discharge Weight: 3.03 kg Percentage weight loss: 6.7 Baby's Information Baby's Age at Visit: 5 days Baby's Provider or Clinic: [facility] Jaundice: Yes Past Experience Past Experience: Yes Current Frequency of Day Feedings: q 3 hrs day and night, needs waking for feedings Both Breasts: No (has not BF for about 48 hrs due to pain) Latch: shallow, painful Goals: 1 year Pumping Pumping: Yes Quantity Pumped: gets 6 oz/breast about every 8 hrs, total of 36 oz/day Supplementing EBM Supplement: Yes (taking 2 oz/feeding every 3 hrs) Formula Supplement: No Baby Elimination Number of Wet Diapers a Day: ea feeding Number of BM a Day: 4-5/day; today yellow and soft Breast/Nipple Condition Breast Information: Breasts are symmetrical with rounded lower quadrants, intramammary distance is less than 1.5 inches. No erythema on breast.? Nipples are supple, everted prior to feeding. Nipples are erythematous with creasing noted bilaterally and scabbed areas. No drainage noted. Engorgement: No Maternal Nipple Condition - Left: Common Nipple and Cracking/ Fissures Maternal Nipple Condition - Right: Common Nipple and Cracking/ Fissures Interventions for Sore Nipples: Lansinoh/Nipple Cream Baby Assessment Skin: Yellow (to mid abdomen, legs are pink) Tongue/frenulum: Restricted mid-range Palate: Average Lips: Relaxed and Symmetrical Jaw Alignment: Symmetrical Mucosa: [place], moist Onsite Observation Pre-Feed weight: 3.074 kg Post-Feed weight: 3.09 kg Milk Transferred (mL): 16 Position: Cross cradle Attachment/latch-on achieved: Easily Suck pattern: Suck burst and normal rest Swallow: Audible, consistent Behavior following feed: Alert, content Pre-Nursing Left Nipple: Crusting/Scabs Pre-Nursing Right Nipple: Crusting/Scabs Post-Nursing Left Nipple: Crusting/Scabs Post-Nursing Right Nipple: Crusting/Scabs Assessments/Interventions Assessments/Interventions: Mom with concerns of severe nipple pain while feeding and was told on Friday at well visit that baby has a tongue tie. Would like assessment, help with latch and recommendations for feeding plan. Kenroy drank 2 oz of EBM less than 1 hr ago so not sure if he'll feed or not. Margaret started pumping and bottling about 48 hrs ago due to pain with nursing. She is pumping 6 oz ea breast about three times/day for a total of 36 oz/day; she is not pumping every feeding. She would like to try and latch him while here. As she puts him in the nursing position and supports her breast, her fingers are very near the end of her nipple; suggestion made to slide them back to allow him to get a deeper latch. Encouraged Margaret to bring Luke to her vs leaning into his mouth to better allow for a deep latch. With this maneuver, she is able to get a more comfortable latch - she states she feels the tugging and pulling, but less pinchy and biting than it's been; baby engages in feeding for about 5 minutes before pulling off. Attempted to latch him to her other breast and he is not interested in feeding. Education provided: Early feeding cues to maximize timing of latching, Asymmetric latch technique for wide/deep latch to increase milk, Transfer for baby and increase comfort for mom, Supply/demand nature of milk supply, Need for frequent stimulation/milk removal, Sore nipple treatment options, Alternative feeding methods (SNS, cup, finger feeding, bottling) (using a tommee tipee bottle, mom thinks he needs to have more in his mouth based on bottle feeding pictures I showed her so she will work on this if/when he needs a bottle feeding) and Pumping for milk management (either feed baby every 2-3 hrs, or pump every 3 hrs; pump a little more than he needs for feeding (not full 12 oz) to protect milk supply) Handouts Provided: Tongue tie release resources (Dr. Rios) and exercises if proceed with laser release Feeding Plan: Feed every 2-3 hours, wide deep latch needed to get past nipple compression Pump if dont' latch, ok to pump just a little more than baby is taking for feeding Follow-Up Suggested follow up: Appointment as needed (if proceed with TOTS release, recommend appt with LC 1 week after for re-eval; call with ques/concerns prior to that) Recommend baby be seen by provider for:: well child visit in 1 week, sooner if his jaundice is increasing Time Spent Time spent with patient (min): 75 Meds Home Medications and Allergies Home Medications ?Medication ?Instructions ?Recorded ?Confirmed ?Type fluoxetine 20 mg tablet 20 mg PO QDAY #90 tabs 08/12/24 07/05/25 Rx [id number] 3 fatty no.1 27 1 cap PO DAILY 12/14/24 07/05/25 History mg-1 mg-300 mg capsule docusate sodium 100 mg capsule 100 mg PO DAILY #60 caps 07/07/25 Rx Allergies Allergy/AdvReac Type Severity Reaction Status Date / Time No Known Drug Allergies Allergy Verified 07/05/25 09:36
== END 2025-07-11 13:41 | disposition home or self-care (01) ==
PROVIDERS: PCP Family Medicine; Visit Provider Obstetrics & Gynecology
DX: Z39.1 Encounter for care and examination of lactating mother (principal)
CPT/HCPCS: G0463